=== PATIENT | female | born 1945 | race Caucasian/White ===

== ENCOUNTER 2018-10-06 21:04 | Emergency (ER) | payer MEDICARE, OTHER ==
[~2018-10-06] VITALS: Ht 167.6 cm; Wt 49.9 kg
--- NOTE | 2018-10-06 21:25 | ED General ---
General Chief Complaint: Fever-Adult/Adol Stated Complaint: FEVER,CONFUSED, WEAK Source of Information: Patient, Caregiver History of Present Illness Date Seen by Provider: Oct 06, 2018 Time Seen by Provider: 21:22 Initial Comments 73-year-old white female presents with a history of dysuria this morning with associated suprapubic discomfort. Patient now has a fever and has become confused. Patient had a similar presentation several months ago from a urinary tract infection. There is been no associated productive cough or shortness of breath. The patient denies nausea vomiting or diarrhea. Next Past medical history includes breast cancer. The patient is taking tamoxifen. Allergies and Home Medications Allergies Coded Allergies: No Known Drug Allergies (Unverified , 10/06/18) Patient Home Medication List Home Medication List Reviewed: Yes Review of Systems Review of Systems Constitutional: fever, weakness Respiratory: No cough, No short of breath Cardiovascular: No chest pain Gastrointestinal: No abdominal pain, No diarrhea, No nausea, No vomiting Genitourinary: see HPI, dysuria Musculoskeletal: no symptoms reported Skin: No rash Psychiatric/Neurological: Other (confusion with the present illness.) Hematologic/Lymphatic: No Symptoms Reported Immunological/Allergic: no symptoms reported Past Hrkeeli-Kfcmuf-Czgsep Hx Past Med/Social Hx: Reviewed Nursing Past Med/Soc Hx Patient Social History Recent Foreign Travel: No Contact w/Someone Who Travel: No Physical Exam-Suspected Sepsis Physical Exam Vital Signs Vital Signs - First Documented 10/06/18 21:07 Temp 101.3 Pulse 83 Resp 24 B/P (MAP) 171/79 (109) Pulse Ox 92 O2 Delivery Room Air Capillary Refill : Height, Weight, BMI Height: '" Weight: lbs. oz. kg; BMI Method: General Appearance: Cachetic, Other Eyes: Bilateral Eye Normal Inspection (the patient is poorly responsive but appropriate to simple verbal stimuli.) HEENT: Normal ENT Inspection Neck: Full Range of Motion, Normal Inspection, Non Tender Respiratory: Chest Non Tender, Lungs Clear Cardiovascular: Regular Rate, Rhythm Gastrointestinal: Normal Bowel Sounds, Non Tender, Soft Back: Normal Inspection Extremity: Normal Capillary Refill, Normal Inspection Neurologic/Psychiatric: Other (patient has no lateralizing localizing neurologic findings. She is weak. She is) Skin: normal color, warm/dry; No rash Focused Exam Lactate Level 10/06/18 21:33: Lactic Acid Level 1.20 Lactic Acid Level Laboratory Tests Test 10/06/18 21:33 Lactic Acid Level 1.20 MMOL/L (0.50-2.00) Progress/Results/Core Measures Suspected Sepsis SIRS Temperature: Pulse: Respiratory Rate: Laboratory Tests 10/06/18 21:33: White Blood Count 9.5 Blood Pressure / Mean: 10/06/18 21:33: Lactic Acid Level 1.20 Laboratory Tests 10/06/18 21:33: Creatinine 0.98, Platelet Count 129L, Total Bilirubin 0.5 Results/Orders Lab Results Laboratory Tests Test 10/06/18 21:33 10/06/18 22:38 Range/Units White Blood Count 9.5 4.3-11.0 10^3/uL Red Blood Count 4.29 L 4.35-5.85 10^6/uL Hemoglobin 13.9 11.5-16.0 G/DL Hematocrit 42 35-52 % Mean Corpuscular Volume 99 80-99 FL Mean Corpuscular Hemoglobin 32 25-34 PG Mean Corpuscular Hemoglobin Concent 33 32-36 G/DL Red Cell Distribution Width 13.2 10.0-14.5 % Platelet Count 129 L 130-400 10^3/uL Mean Platelet Volume 9.8 7.4-10.4 FL Neutrophils (%) (Auto) 84 H 42-75 % Lymphocytes (%) (Auto) 9 L 12-44 % Monocytes (%) (Auto) 6 0-12 % Eosinophils (%) (Auto) 0 0-10 % Basophils (%) (Auto) 0 0-10 % Neutrophils # (Auto) 8.0 H 1.8-7.8 X 10^3 Lymphocytes # (Auto) 0.8 L 1.0-4.0 X 10^3 Monocytes # (Auto) 0.6 0.0-1.0 X 10^3 Eosinophils # (Auto) 0.0 0.0-0.3 10^3/uL Basophils # (Auto) 0.0 0.0-0.1 10^3/uL Sodium Level 140 135-145 MMOL/L Potassium Level 4.2 3.6-5.0 MMOL/L Chloride Level 100 98-107 MMOL/L Carbon Dioxide Level 25 21-32 MMOL/L Anion Gap 15 H 5-14 MMOL/L Blood Urea Nitrogen 31 H 7-18 MG/DL Creatinine 0.98 0.60-1.30 MG/DL Estimat Glomerular Filtration Rate 55 BUN/Creatinine Ratio 32 Glucose Level 118 H 70-105 MG/DL Lactic Acid Level 1.20 0.50-2.00 MMOL/L Calcium Level 9.0 8.5-10.1 MG/DL Corrected Calcium 9.2 8.5-10.1 MG/DL Total Bilirubin 0.5 0.1-1.0 MG/DL Aspartate Amino Transf (AST/SGOT) 13 5-34 U/L Alanine Aminotransferase (ALT/SGPT) 8 0-55 U/L Alkaline Phosphatase 92 40-136 U/L Total Protein 6.8 6.4-8.2 GM/DL Albumin 3.7 3.2-4.5 GM/DL Urine Color YELLOW Urine Clarity SLT CLOUDY Urine pH 6.0 5-9 Urine Specific [place] 1.020 1.016-1.022 Urine Protein 1+ H NEGATIVE Urine Glucose (UA) NEGATIVE NEGATIVE Urine Ketones 1+ H NEGATIVE Urine Nitrite POSITIVE H NEGATIVE Urine Bilirubin NEGATIVE NEGATIVE Urine Urobilinogen 0.2 NORMAL MG/DL Urine Leukocyte Esterase 2+ H NEGATIVE Urine RBC (Auto) 2+ H NEGATIVE Urine RBC 2-5 H /HPF Urine WBC 10-25 H /HPF Urine Squamous Epithelial Cells 2-5 /HPF Urine Crystals NONE /LPF Urine Bacteria LARGE H /HPF Urine Casts NONE /LPF Urine Mucus NONE /LPF Urine Culture Indicated YES My Orders Orders - JYOTI TRIANA MD Cbc With Automated Diff (10/06/18 21:17) Ua Culture If Indicated (10/06/18 21:17) Comprehensive Metabolic Panel (10/06/18 21:17) Ekg Tracing (10/06/18 21:17) Blood Culture (10/06/18 21:17) Lactic Acid Analyzer (10/06/18 21:20) Ns Iv 1000 Ml (Sodium Chloride 0.9%) (10/06/18 21:30) Ceftriaxone For Iv Use (Rocephin For I (10/06/18 21:30) Chest Pa/Lat (2 View) (10/06/18 21:38) Acetaminophen Tablet/Caplet (Tylenol T (10/06/18 22:30) Urine Culture (10/06/18 22:38) Medications Given in ED Current Medications Medications Dose Ordered Sig/Uyen Route Start Time Stop Time Status Last Admin Dose Admin Acetaminophen 650 mg ONCE ONCE PO 10/06/18 22:30 10/06/18 22:31 DC 10/06/18 22:23 650 MG Ceftriaxone Sodium 2000 mg/ Sterile Water 20 ml @ 240 mls/hr ONCE ONCE IV 10/06/18 21:30 10/06/18 21:34 DC 10/06/18 22:23 240 MLS/HR Vital Signs/I&O 10/06/18 10/06/18 21:07 22:23 Temp 101.3 101.6 Pulse 83 Resp 24 B/P (MAP) 171/79 (109) Pulse Ox 92 O2 Delivery Room Air Capillary Refill : Progress Note : Time: 22:53 Progress Note The patient was dramatically improved following a liter of IV fluids and 2 g of Rocephin IV. Her workup demonstrated a urinary tract infection. The patient did not demonstrate a pneumonia. In the a.m. patient was discharged on Augmentin. She agreed to following up with her doctor early next week. She was invited to return to the emergency department if she any further problems or questions. Departure Impression Primary Impression: UTI (urinary tract infection) Qualified Codes: N30.00 - Acute cystitis without hematuria Disposition: HOME, SELF-CARE Condition: Improved Departure-Patient Inst. Decision time for Depature: 23:03 Referrals: NO,LOCAL PHYSICIAN (PCP) Primary Care Physician DIXIE DIETZ MD Patient Instructions: Acute Cystitis (DC) Add. Discharge Instructions: Augmentin as prescribed. Close follow-up with your doctor on Tuesday. Return if any problems or questions. All discharge instructions reviewed with patient and/or family. Voiced understanding. JYOTI TRIANA MD Oct 06, 2018 21:25
[2018-10-06] MEDS ORDERED: cefTRIAXone FOR IV USE 2,000 MG in WATER (STERILE) FOR INJECTION 20 ML IV ONE (21:30)
[2018-10-06] MEDS ORDERED: NS IV 1000 ML 1,000 ML IV SCH (21:30)
[2018-10-06 21:44] LABS: HEMATOCRIT 42 % (35-52); HEMOGLOBIN 13.9 G/DL (11.5-16.0); MEAN CORPUSCULAR HEMOGLOBIN 32 PG (25-34); MEAN CORPUSCULAR HGB CONC 33 G/DL (32-36); MEAN CORPUSCULAR VOLUME 99 FL (80-99); MEAN PLATELET VOLUME 9.8 FL (7.4-10.4); PLATELET COUNT 129 10^3/uL (130-400); RED CELL DISTRIBUTION WIDTH 13.2 % (10.0-14.5); WHITE BLOOD COUNT 9.5 10^3/uL (4.3-11.0)
[2018-10-06 21:45] LABS: BASOPHILS % (AUTO) 0 % (0-10); EOSINOPHILS % (AUTO) 0 % (0-10); LYMPHOCYTES # (AUTO) 0.8 X 10^3 (1.0-4.0); LYMPHOCYTES % (AUTO) 9 % (12-44); MONOCYTES # (AUTO) 0.6 X 10^3 (0.0-1.0); MONOCYTES % (AUTO) 6 % (0-12); NEUTROPHILS % (AUTO) 84 % (42-75)
--- NOTE | 2018-10-06 22:05 | Diagnostic Imaging Report ---
PATIENT HISTORY: Fever, confusion, shortness of breath. TECHNIQUE: 2 views of the chest COMPARISON: None FINDINGS: There is moderate cardiomegaly. There is tortuosity of the aorta. No pleural effusion or pneumothorax is seen. No focal consolidation is seen. There are degenerative changes in the spine. IMPRESSION: Cardiomegaly with no acute pulmonary abnormality seen. Dictated by: Dictated on workstation # [id number]
[2018-10-06 22:08] LABS: POTASSIUM 4.2 MMOL/L (3.6-5.0)
[2018-10-06 22:09] LABS: ALBUMIN 3.7 GM/DL (3.2-4.5); BILIRUBIN,TOTAL 0.5 MG/DL (0.1-1.0); CREATININE SERUM 0.98 MG/DL (0.60-1.30); TOTAL PROTEIN 6.8 GM/DL (6.4-8.2)
--- OUTSIDE RECORDS SUMMARY | 2018-10-06 22:09 | XMS REPORT | Continuity of Care Document ---
Author Organization Unknown Address Unknown Allergies There is no data. Medications There is no data. Problems There is no data. Procedures There is no data. Results Test Result Range CARBAMAZEPINE, TOTAL - 08/31/18 13:38 CARBAMAZEPINE, TOTAL 4.0 mg/L 4.0-12.0 CMP - 09/08/18 09:31 GLUCOSE 83 mg/dL 65-99 UREA NITROGEN (BUN) 22 mg/dL 7-25 CREATININE 0.82 mg/dL 0.60-0.93 eGFR NON-AFR. CITIZEN OF [place] 70 mL/min/1.73m2 > OR=60 eGFR 81 mL/min/1.73m2 > OR=60 BUN/CREATININE RATIO NOT APPLICABLE (calc) 6-22 SODIUM 143 mmol/L 135-146 POTASSIUM 4.2 mmol/L 3.5-5.3 CHLORIDE 108 mmol/L 98-110 CARBON DIOXIDE 28 mmol/L 20-32 CALCIUM 9.1 mg/dL 8.6-10.4 PROTEIN, TOTAL 6.3 g/dL 6.1-8.1 ALBUMIN 3.7 g/dL 3.6-5.1 GLOBULIN 2.6 g/dL (calc) 1.9-3.7 ALBUMIN/GLOBULIN RATIO 1.4 (calc) 1.0-2.5 BILIRUBIN, TOTAL 0.4 mg/dL 0.2-1.2 ALKALINE PHOSPHATASE 79 U/L 33-130 AST 12 U/L 10-35 ALT 6 U/L 6-29 CBC w/MANUAL DIFF - 09/08/18 09:31 WHITE BLOOD CELL COUNT 6.6 Thousand/uL 3.8-10.8 RED BLOOD CELL COUNT 4.76 Million/uL 3.80-5.10 HEMOGLOBIN 15.0 g/dL 11.7-15.5 HEMATOCRIT 46.7 % 35.0-45.0 MCV 98.1 fL 80.0-100.0 MCH 31.5 pg 27.0-33.0 MCHC 32.1 g/dL 32.0-36.0 RDW 12.6 % 11.0-15.0 PLATELET COUNT 165 Thousand/uL 140-400 MPV 9.5 fL 7.5-12.5 ABSOLUTE NEUTROPHILS 5016 cells/uL 9189-5738 ABSOLUTE MONOCYTES 462 cells/uL 200-950 ABSOLUTE EOSINOPHILS 132 cells/uL 15-500 ABSOLUTE BASOPHILS 66 cells/uL 0-200 NEUTROPHILS 76.0 % NRG LYMPHOCYTES 14.0 % NRG MONOCYTES 7.0 % NRG EOSINOPHILS 2.0 % NRG BASOPHILS 1.0 % NRG ABSOLUTE LYMPHOCYTES 924 cells/uL 850-3900 PLATELET ESTIMATION ADEQUATE ADEQUATE CBC MORPHOLOGY NORMAL Encounters ACCT No. Visit Date/Time Discharge Status Pt. Type Provider Facility Loc./Unit Complaint [id number] 09/08/2018 09:00:00 09/08/2018 23:59:59 [facility] Outpatient DIX[facility]ETZ [facility] [id number] 09/08/2018 09:00:00 Document Registration [id number] 08/31/2018 17:45:00 Document Registration
[2018-10-06] MEDS ORDERED: ACETAMINOPHEN 325 MG TABLET PO ONE (22:30)
[2018-10-06 22:48] LABS: COLOR,URINE YELLOW
[2018-10-06 22:49] LABS: BILIRUBIN,URINE NEGATIVE (NEGATIVE); CLARITY,URINE SLT CLOUDY; GLUCOSE, URINE (UA) NEGATIVE (NEGATIVE); KETONES,URINE 1+ (NEGATIVE); LEUKOCYTE ESTERASE ,URINE 2+ (NEGATIVE); NITRITE,URINE POSITIVE (NEGATIVE); PROTEIN,URINE 1+ (NEGATIVE); UROBILINOGEN,URINE 0.2 MG/DL (NORMAL)
[2018-10-06 22:50] LABS: BACTERIA,URINE LARGE /HPF
[2018-10-06] MEDS ORDERED: AMOX-358 PO (23:06)
[2018-10-06 23:17] VITALS: BP 135/80
== END 2018-10-06 23:17 | disposition home or self-care (01) ==
LOC: ER FS 21:06
DX: N39.0 Urinary tract infection, site not specified (principal); C50.919 Malignant neoplasm of unspecified site of unspecified female breast
CPT/HCPCS: 36415; 71046; 80053; 81000; 83605; 85025; 87040; 87077; 87088; 93005

== ENCOUNTER → 2019-05-07 | Outpatient (CLI) | payer MEDICARE ==
[~2019-05-07] MED LIST: AMOX-358 PO
--- NOTE | 2019-05-07 10:58 | Diagnostic Imaging Report ---
INDICATION: Jaw pain. COMPARISON: None available. TECHNIQUE: 6 radiographs of the mandible dated 05/07/2019. FINDINGS: Examination slightly limited secondary to positioning, earrings, and dental amalgam. No acute fracture or dislocation. No destructive osseous process. Nasal septum is midline. No apical pneumothorax. No suspicious radiopaque foreign body. Degenerative changes within the cervical spine partially visualized. No suspicious radiopaque foreign body. IMPRESSION: No acute osseous abnormality within the limits of the examination Dictated by: Dictated on workstation # [id number]
== END ==
LOC: RAD FS 10:19
PROVIDERS: ATTEND Family Medicine
DX: R68.84 Jaw pain (principal)
CPT/HCPCS: 70110

== ENCOUNTER 2020-01-02 09:20 | Inpatient (IN) | payer MEDICARE ==
[~2020-01-02] VITALS: Ht 152.4 cm; Wt 55.2 kg
[2020-01-02] VITALS (12 sets, daily range): BP systolic 95–155; BP diastolic 58–105
[2020-01-02] MEDS ORDERED: ASPIRIN 81 MG CHEW (CHILDREN'S ASA) PO ONE (09:30)
[2020-01-02] MEDS ORDERED: NS IV 1000 ML 1,000 ML IV STA ×2 (09:43→11:13)
[2020-01-02 09:59] LABS: BASOPHILS % (AUTO) 0 % (0-10); EOSINOPHILS % (AUTO) 0 % (0-10); HEMATOCRIT 36 % (35-52); HEMOGLOBIN 11.8 G/DL (11.5-16.0); LYMPHOCYTES % (AUTO) 12 % (12-44); MEAN CORPUSCULAR HEMOGLOBIN 33 PG (25-34); MEAN CORPUSCULAR HGB CONC 33 G/DL (32-36); MEAN CORPUSCULAR VOLUME 99 FL (80-99); MEAN PLATELET VOLUME 10.7 FL (7.4-10.4); MONOCYTES % (AUTO) 4 % (0-12); PLATELET COUNT 107 10^3/uL (130-400); WHITE BLOOD COUNT 18.6 10^3/uL (4.3-11.0)
[2020-01-02 10:00] LABS: BASOPHILS # (AUTO) 0.1 10^3/uL (0.0-0.1); LYMPHOCYTES # (AUTO) 2.3 X 10^3 (1.0-4.0); MONOCYTES # (AUTO) 0.8 X 10^3 (0.0-1.0); NEUTROPHILS # (AUTO) 15.3 X 10^3 (1.8-7.8); NEUTROPHILS % (AUTO) 83 % (42-75)
[2020-01-02 10:07] LABS: INR 1.3 (0.8-1.4); PROTHROMBIN TIME PATIENT 16.6 SEC (12.2-14.7)
--- NOTE | 2020-01-02 10:11 | ED General ---
General Chief Complaint: Oral/Throat Problems Stated Complaint: BLEEDING GUMS Source of Information: Patient, EMS History of Present Illness Date Seen by Provider: Jan 02, 2020 Time Seen by Provider: 09:24 Initial Comments 74-year-old female presenting with complaints of bleeding from where she had a tooth pulled yesterday. She had some continued bleeding overnight. She also has been smoking since she had the tooth pulled. She had low blood pressure this morning and was more fatigued and sleepy than usual. She is alert and answering questions but had hypotension. She denies any pain, nausea or vomiting, chest pain, shortness of breath, cough. Her only complaint is that she is tired and wants to sleep. Allergies and Home Medications Allergies Coded Allergies: No Known Drug Allergies (Unverified , 10/06/18) Home Medications Acetaminophen 325 Mg Capsule, 650 MG PO Q4H PRN for PAIN-MILD (1-4) OR TEMPATURE , (Reported) Aspirin 81 Mg Tablet.dr, 81 MG PO DAILY, (Reported) Carbamazepine 100 Mg Tab.chew, 100 MG PO 0800,1200,1700, (Reported) TAKES THREE TIMES DAILY Ibuprofen 400 Mg Tablet, 400 MG PO Q8H PRN for PAIN-MILD (1-4), (Reported) Ketorolac Tromethamine 5 Ml Drops, 1 DROPS OD QID, (Reported) Krill Oil 500 Mg Capsule, 500 MG PO DAILY, (Reported) Magnesium Oxide 250 Mg Tablet, 250 MG PO DAILY, (Reported) Mirtazapine 15 Mg Tablet, 15 MG PO HS, (Reported) Multivitamin 1 Each Tablet, 1 EACH PO DAILY, (Reported) Polyethylene Glycol 3350 17 Gm Powd.pack, 17 GM PO DAILY PRN for CONSTIPATION- 2ND LINE, (Reported) Tamoxifen Citrate 20 Mg Tablet, 20 MG PO DAILY, (Reported) [Magic Mouthwash] , Q6H PRN for MOUTH PAIN, (Reported) TAKE 1 SIP THEN SWISH, HOLD AND SPITOUT Patient Home Medication List Home Medication List Reviewed: Yes Review of Systems Review of Systems Constitutional: malaise, weakness EENTM: no symptoms reported Respiratory: No cough Cardiovascular: no symptoms reported Gastrointestinal: other (dark stools per detention) Genitourinary: no symptoms reported Musculoskeletal: no symptoms reported Skin: no symptoms reported Psychiatric/Neurological: No Symptoms Reported Past Qzohxyc-Nymxqf-Hqbtpq Hx Past Med/Social Hx: Reviewed Nursing Past Med/Soc Hx Patient Social History Type Used: Cigarettes 2nd Hand Smoke Exposure: Yes Recent Hopitalizations: No Past Medical History Surgeries: No Respiratory: No Cardiac: Yes Hypertension Neurological: Yes Dementia Genitourinary: Yes UTI-Chronic Gastrointestinal: Yes Gastroesophageal Reflux Musculoskeletal: No Endocrine: No HEENT: No Cancer: Yes Breast Did You Recieve Any Treatments: Yes Psychosocial: No Integumentary: No Physical Exam Vital Signs Vital Signs - First Documented 01/02/20 01/02/20 09:20 09:30 Temp 35.6 Pulse 84 Resp 16 B/P (MAP) 79/56 (64) Pulse Ox 96 O2 Delivery Room Air O2 Flow Rate 2.00 Capillary Refill : Height, Weight, BMI Height: 5'6.00" Weight: 110lbs. 0oz. [id number]; BMI Method:Stated General Appearance: No Apparent Distress, Thin HEENT: PERRL/EOMI, Other (clot to left lower anterior gum where tooth recently pulled. no active bleeding) Neck: Non Tender, Supple Respiratory: Chest Non Tender, Lungs Clear, Decreased Breath Sounds Cardiovascular: Regular Rate, Rhythm, Normal Peripheral Pulses Extremity: Normal Capillary Refill, No Pedal Edema Neurologic/Psychiatric: Alert, Oriented x3 Skin: Warm/Dry, Pallor Focused Exam Sepsis Stage: Sepsis Possible Source: Genitouriary Lactate Level 01/02/20 10:31: Lactic Acid Level 4.95*H 01/02/20 13:44: Lactic Acid Level 3.86*H Time of Focused Exam: 11:30 Respiratory: Chest Non Tender, Lungs Clear, No Accessory Muscle Use, No Respiratory Distress, Decreased Breath Sounds Cardiovascular: Regular Rate, Rhythm, Normal Peripheral Pulses Capillary Refill: Less Than 3 Seconds Peripheral Pulses: 2+ Carotid (R), 2+ Carotid (L), 2+ Radial Pulses (R), 2+ Radial Pulses (L) Skin: normal color, warm/dry Lactic Acid Level Laboratory Tests Test 01/02/20 13:44 Lactic Acid Level 3.86 MMOL/L (0.50-2.00) *H Within 3hrs of presentation: Admin fluids, Admin ABX, Blood cultures prior to ABX's, Focus exam, Lactate level Progress/Results/Core Measures Suspected Sepsis Recent Fever Within 48 Hours: Yes Infection Criteria Present: Suspected New Infection New/Unexplained Altered Menta: No Within 3hrs of presentation: Admin fluids, Admin ABX, Blood cultures prior to ABX's, Focus exam, Lactate level SIRS Temperature: Pulse: Respiratory Rate: Laboratory Tests 01/02/20 09:42: White Blood Count 18.6H Blood Pressure / Mean: 01/02/20 10:31: Lactic Acid Level 4.95*H 01/02/20 13:44: Lactic Acid Level 3.86*H Laboratory Tests 01/02/20 09:42: Creatinine 1.80H, INR Comment 1.3, Platelet Count 107L, Total Bilirubin 0.2 Results/Orders Lab Results Laboratory Tests Test 01/02/20 09:42 01/02/20 10:31 01/02/20 10:45 01/02/20 13:44 Range/Units White Blood Count 18.6 H 4.3-11.0 10^3/uL Red Blood Count 3.63 L 4.35-5.85 10^6/uL Hemoglobin 11.8 11.5-16.0 G/DL Hematocrit 36 35-52 % Mean Corpuscular Volume 99 80-99 FL Mean Corpuscular Hemoglobin 33 25-34 PG Mean Corpuscular Hemoglobin Concent 33 32-36 G/DL Red Cell Distribution Width 13.0 10.0-14.5 % Platelet Count 107 L 130-400 10^3/uL Mean Platelet Volume 10.7 H 7.4-10.4 FL Neutrophils (%) (Auto) 83 H 42-75 % Lymphocytes (%) (Auto) 12 12-44 % Monocytes (%) (Auto) 4 0-12 % Eosinophils (%) (Auto) 0 0-10 % Basophils (%) (Auto) 0 0-10 % Neutrophils # (Auto) 15.3 H 1.8-7.8 X 10^3 Lymphocytes # (Auto) 2.3 1.0-4.0 X 10^3 Monocytes # (Auto) 0.8 0.0-1.0 X 10^3 Eosinophils # (Auto) 0.0 0.0-0.3 10^3/uL Basophils # (Auto) 0.1 0.0-0.1 10^3/uL Neutrophils % (Manual) 84 % Lymphocytes % (Manual) 12 % Monocytes % (Manual) 1 % Eosinophils % (Manual) 0 % Basophils % (Manual) 0 % Band Neutrophils 3 % Prothrombin Time 16.6 H 12.2-14.7 SEC INR Comment 1.3 0.8-1.4 Activated Partial Thromboplast Time 27 24-35 SEC Sodium Level 143 135-145 MMOL/L Potassium Level 4.2 3.6-5.0 MMOL/L Chloride Level 102 98-107 MMOL/L Carbon Dioxide Level 21 21-32 MMOL/L Anion Gap 20 H 5-14 MMOL/L Blood Urea Nitrogen 89 H 7-18 MG/DL Creatinine 1.80 H 0.60-1.30 MG/DL Estimat Glomerular Filtration Rate 27 BUN/Creatinine Ratio 49 Glucose Level 181 H 70-105 MG/DL Calcium Level 9.1 8.5-10.1 MG/DL Corrected Calcium 9.5 8.5-10.1 MG/DL Total Bilirubin 0.2 0.1-1.0 MG/DL Aspartate Amino Transf (AST/SGOT) 19 5-34 U/L Alanine Aminotransferase (ALT/SGPT) 13 0-55 U/L Alkaline Phosphatase 76 40-136 U/L Troponin I < 0.30 <0.30 NG/ML Pro-B-Type Natriuretic Peptide 1142.0 H <75.0 PG/ML Total Protein 5.9 L 6.4-8.2 GM/DL Albumin 3.5 3.2-4.5 GM/DL Lactic Acid Level 4.95 *H 3.86 *H 0.50-2.00 MMOL/L Urine Color YELLOW Urine Clarity TURBID Urine pH 6.0 5-9 Urine Specific [place] >=1.030 1.016-1.022 Urine Protein 2+ H NEGATIVE Urine Glucose (UA) NEGATIVE NEGATIVE Urine Ketones NEGATIVE NEGATIVE Urine Nitrite NEGATIVE NEGATIVE Urine Bilirubin 1+ H NEGATIVE Urine Urobilinogen 0.2 < = 1.0 MG/DL Urine Leukocyte Esterase 2+ H NEGATIVE Urine RBC (Auto) 3+ H NEGATIVE Urine RBC 5-10 H /HPF Urine WBC TNTC H /HPF Urine Squamous Epithelial Cells 10-25 H /HPF Urine Crystals NONE /LPF Urine Bacteria LARGE H /HPF Urine Casts NONE /LPF Urine Mucus NEGATIVE /LPF Urine Culture Indicated YES Test 01/02/20 14:20 Range/Units Stool Occult Blood Immunoassay POSITIVE H NEGATIVE My Orders Orders - MEGAN MCDONALD MD Cbc With Automated Diff (01/02/20 09:29) Ekg Tracing (01/02/20 09:29) Comprehensive Metabolic Panel (01/02/20 09:29) Protime With Inr (01/02/20 09:29) Partial Thromboplastin Time (01/02/20 09:29) O2 (01/02/20 09:29) Monitor-Rhythm Ecg Trace Only (01/02/20 09:29) Ed Iv/Invasive Line Start (01/02/20 09:29) Troponin I Fs (01/02/20 09:29) Probnp Fs (01/02/20 09:29) Ns Iv 1000 Ml (Sodium Chloride 0.9%) (01/02/20 09:43) Manual Differential (01/02/20 09:42) Blood Culture (01/02/20 10:12) Lactic Acid Analyzer (01/02/20 10:12) Chest 1 View Ap/Pa Only (01/02/20 10:25) Miller Cath (01/02/20 10:41) Ua Culture If Indicated (01/02/20 10:54) Ns Iv 1000 Ml (Sodium Chloride 0.9%) (01/02/20 11:13) Urine Culture (01/02/20 10:45) Ceftriaxone For Iv Use (Rocephin For I (01/02/20 11:36) Vital Signs/I&O 01/02/20 01/02/20 01/02/20 01/02/20:20 09:30 13:30 14:34 Temp 35.6 37.7 Pulse 84 Resp 16 B/P (MAP) 79/56 (64) Pulse Ox 96 79 O2 Delivery Room Air Nasal Cannula Nasal Cannula O2 Flow Rate 2.00 3.00 01/02/20 01/02/20 01/02/20 14:50 15:34 15:35 Pulse 84 76 B/P (MAP) 79/56 111/95 O2 Delivery Nasal Cannula O2 Flow Rate 2.00 Capillary Refill : Progress Note #1: Progress Note check labs and blood count. give IVF for her low blood pressure to see if that helps. Progress Note #2: Time: 10:27 Progress Note CBC shows elevated WBC count to 18.4 with left shift. Her Hgb is stable at 11.8. She does have some hypoxia with oxygen dropping down into the mid 80s so placed on supplemental oxygen. She does smoke but denies using oxygen routinely. Will add on CXR and blood cultures with lactic acid to look for infection since she is not anemic to be causing her hypotension. Progress Note #3: Time: 11:48 Progress Note Chest x-ray was clear did not show any infiltrates or pneumonia. Her lactic acid did come back elevated at 4.95. A urinalysis was undergone by catheter and didn't demonstrate infection. Since I had a specific source she was given Rocephin to treat a UTI. Her blood pressure and heart rate improved with IV fluids. Her oxygen was stable with nasal cannula. Discussed with Dr. Nielson for the [facility] service and she accepted the patient for admission. Will admit to the ICU since patient is septic with a UTI. ECG Initial ECG Impression Date: Jan 02, 2020 Initial ECG Impression Time: 11:32 Initial ECG Rate: 62 Initial ECG Comparisson: No Previous ECG Available Comment Sinus rhythm with heart rate of 62 bpm. Short VA interval with her interval of 72 ms. Left axis deviation. Prolonged QT interval 535 ms and a QTc interval of 5 44 ms. There is global T-wave flattening but no ST elevation. There is no prior tracing immediately available for comparison. Diagnostic Imaging Diagonstic Imaging: Xray Plain Films/CT/US/NM/MRI: chest Comments [facility]. [place], [place] NAME: MIRELA BELTRAN [facility] REC#: [id number] PT STATUS: REG ER : 1945 PHYSICIAN: MEGAN MCDONALD MD ADMIT DATE: 01/02/20/ER FS Draft Date of Exam:01/02/20 CHEST 1 VIEW AP/PA ONLY INDICATION: Hypoxia. Time of exam: 10:26 AM Comparison is made with prior chest from 10/06/2018. The heart size is stable. There is some minimal linear scarring or atelectasis in the right base. No infiltrates are detected. There is no effusion or pneumothorax. Pulmonary vascularity is unremarkable. IMPRESSION: No acute cardiopulmonary process is detected. Dictated on workstation # [id number] Dict: 01/02/20 1042 Trans: 01/02/20 1044 ARMANI [id number] Interpreted by: LADONNA MOSHER MD Electronically signed by: Critical Care Note Critical Care Total Time (minutes) 45 minutes Progress 45 minutes of time was spent in critical care of the patient. This time was spent in direct care of the patient. Time was spent obtaining history from the patient and reviewing records, ordering labs and reviewing results, ordering radiology and reviewing results, ordering interventions and monitoring response, discussion with consultants, documentation in the chart. Patient was at risk of severe mortality and morbidity from cardiovascular collapse due to infection from sepsis. Departure Communication (Admissions) Time/Spoke to Admitting Phy: 11:[address] Nielson for admission to the ICU for sepsis and UTI. Impression Primary Impression: Sepsis Qualified Codes: A41.9 - Sepsis, unspecified organism; R65.21 - Severe sepsis with septic shock; N17.9 - Acute kidney failure, unspecified Additional Impressions: Acute cystitis without hematuria Acute renal injury Dehydration Disposition: ADMITTED INPATIENT Condition: Critical Admissions Decision to Admit Reason: Admit from ER (General) Decision to Admit/Date: Jan 02, 2020 Time/Decision to Admit Time: 11:48 Departure-Patient Inst. Referrals: DIXIE DIETZ MD (PCP/Family) Primary Care Physician MEGAN MCDONALD MD Jan 02, 2020 10:11
[2020-01-02 10:16] LABS: BAND NEUTROPHILS 3 %; BASOPHILS % (MANUAL) 0 %; EOSINOPHILS % (MANUAL) 0 %; LYMPHOCYTES % (MANUAL) 12 %; MONOCYTES % (MANUAL) 1 %; NEUTROPHILS % (MANUAL) 84 %
[2020-01-02 10:27] LABS: CALCIUM 9.1 MG/DL (8.5-10.1); CREATININE SERUM 1.8 MG/DL (0.60-1.30); POTASSIUM 4.2 MMOL/L (3.6-5.0)
[2020-01-02 10:28] LABS: ALBUMIN 3.5 GM/DL (3.2-4.5); BILIRUBIN,TOTAL 0.2 MG/DL (0.1-1.0); TOTAL PROTEIN 5.9 GM/DL (6.4-8.2)
--- NOTE | 2020-01-02 10:44 | Diagnostic Imaging Report ---
INDICATION: Hypoxia. Time of exam: 10:26 AM Comparison is made with prior chest from 10/06/2018. The heart size is stable. There is some minimal linear scarring or atelectasis in the right base. No infiltrates are detected. There is no effusion or pneumothorax. Pulmonary vascularity is unremarkable. IMPRESSION: No acute cardiopulmonary process is detected. Dictated by: Dictated on workstation # [id number]
[2020-01-02 11:11] LABS: CLARITY,URINE TURBID; COLOR,URINE YELLOW; GLUCOSE, URINE (UA) NEGATIVE (NEGATIVE); PROTEIN,URINE 2+ (NEGATIVE)
[2020-01-02 11:12] LABS: BACTERIA,URINE LARGE /HPF; BILIRUBIN,URINE 1+ (NEGATIVE); KETONES,URINE NEGATIVE (NEGATIVE); LEUKOCYTE ESTERASE ,URINE 2+ (NEGATIVE); NITRITE,URINE NEGATIVE (NEGATIVE); WBC,URINE TNTC /HPF
[2020-01-02] MEDS ORDERED: cefTRIAXone FOR IV USE 1,000 MG in WATER (STERILE) FOR INJECTION 10 ML IV STA (11:36)
[2020-01-02] MEDS ORDERED: NS IV 1000 ML 1,000 ML IV SCH ×2 (13:30→17:57)
[2020-01-02] MEDS: cefTRIAXone FOR IV USE 1,000 MG in WATER (STERILE) FOR INJECTION 10 ML IV SCH (14:05)
[2020-01-02] MEDS ORDERED: EPINEPHrine 1 MG INJECTION 4 MG in NS (IVPB) 248 ML IV SCH (14:30)
[2020-01-02] MEDS ORDERED: ACETAMINOPHEN 500 MG TAB (TYLENOL) PO PRN (14:45)
[2020-01-02] MEDS ORDERED: ONDANSETRON 4 MG/2 ML (SDV) Z0FRAN IVP PRN (14:45)
[2020-01-02] MEDS ORDERED: ASPI-1238 PO (15:04)
[2020-01-02] MEDS ORDERED: KETO5DRO14 OD (15:04)
[2020-01-02] MEDS ORDERED: MIRT15TA PO (15:04)
[2020-01-02] MEDS ORDERED: KRIL500C PO (15:04)
[2020-01-02] MEDS ORDERED: MAGIC MOUTHWASH (15:04)
[2020-01-02] MEDS ORDERED: MULT-1136 PO (15:04)
[2020-01-02] MEDS ORDERED: TAMO20TA2 PO (15:04)
[2020-01-02] MEDS ORDERED: MAGN250T13 PO (15:04)
[2020-01-02] MEDS ORDERED: ACET325C7 PO (15:04)
[2020-01-02] MEDS ORDERED: IBUP-1779 PO (15:04)
[2020-01-02] MEDS ORDERED: POLY17PO6 PO (15:04)
[2020-01-02] MEDS ORDERED: CARB100T6 PO (15:04)
--- NOTE | 2020-01-02 15:05 | NUR ---
MED REC WAS ENTERED USING THE MAR FROM [facility]
[2020-01-02] MEDS: NOREPINEPHRINE 4 MG/250 ML 250 ML IV SCH (15:34)
[2020-01-02] MEDS: VASOPRESSIN INJECTION 20 UNIT in NS (IVPB) 100 ML IV SCH ×2 (15:35→20:56)
--- NOTE | 2020-01-02 15:54 | History & Physical ---
HPI History of Present Illness: 74 yo female states she came to ER due to her teeth. She had dental extraction and then smoked shortly after and had bleeding and she believes that is what led to this. She denies fever or cough. She does seem mildly confused, changes the subject frequently and can't remember the name of the person coming to visit her . When asked about surgical history she removes her blanket and clothing and points to scars. Source: patient Date seen by provider: Jan 02, 2020 Time Seen by Provider: 12:45 Attending Physician Fernanda Nielson MD PCP Kunal Odom MD Consult Date of Admission Jan 02, 2020 at 13:28 Home Medications Home Medications Reviewed patient Home Medication Reconciliation performed by pharmacy medication reconciliations service center technician and/or nursing. Patients Allergies have been reviewed. Allergies Coded Allergies: No Known Drug Allergies (Unverified , 10/06/18) DZF-Vskzkm-Sphbal Hx Patient Social History Alcohol Use: Denies Use Recreational Drug Use: No Smoking Status: Current Everyday Smoker Type Used: Cigarettes 2nd Hand Smoke Exposure: Yes Recent Foreign Travel: No Contact w/other who traveled: No Recent Hopitalizations: No Recent Infectious Disease Expo: No Past Medical History PMHx: Pt unable to state SurgHx: C section Right mastectomy Review of Systems ([facility]) Constitutional: other (difficult to obtain, patient easily distracted and not answering all questions) Reviewed Test Results Reviewed Test Results Lab Laboratory Tests Test 01/02/20 09:42 01/02/20 10:31 01/02/20 10:45 01/02/20 13:44 Range/Units White Blood Count 18.6 H 4.3-11.0 10^3/uL Red Blood Count 3.63 L 4.35-5.85 10^6/uL Hemoglobin 11.8 11.5-16.0 G/DL Hematocrit 36 35-52 % Mean Corpuscular Volume 99 80-99 FL Mean Corpuscular Hemoglobin 33 25-34 PG Mean Corpuscular Hemoglobin Concent 33 32-36 G/DL Red Cell Distribution Width 13.0 10.0-14.5 % Platelet Count 107 L 130-400 10^3/uL Mean Platelet Volume 10.7 H 7.4-10.4 FL Neutrophils (%) (Auto) 83 H 42-75 % Lymphocytes (%) (Auto) 12 12-44 % Monocytes (%) (Auto) 4 0-12 % Eosinophils (%) (Auto) 0 0-10 % Basophils (%) (Auto) 0 0-10 % Neutrophils # (Auto) 15.3 H 1.8-7.8 X 10^3 Lymphocytes # (Auto) 2.3 1.0-4.0 X 10^3 Monocytes # (Auto) 0.8 0.0-1.0 X 10^3 Eosinophils # (Auto) 0.0 0.0-0.3 10^3/uL Basophils # (Auto) 0.1 0.0-0.1 10^3/uL Neutrophils % (Manual) 84 % Lymphocytes % (Manual) 12 % Monocytes % (Manual) 1 % Eosinophils % (Manual) 0 % Basophils % (Manual) 0 % Band Neutrophils 3 % Prothrombin Time 16.6 H 12.2-14.7 SEC INR Comment 1.3 0.8-1.4 Activated Partial Thromboplast Time 27 24-35 SEC Sodium Level 143 135-145 MMOL/L Potassium Level 4.2 3.6-5.0 MMOL/L Chloride Level 102 98-107 MMOL/L Carbon Dioxide Level 21 21-32 MMOL/L Anion Gap 20 H 5-14 MMOL/L Blood Urea Nitrogen 89 H 7-18 MG/DL Creatinine 1.80 H 0.60-1.30 MG/DL Estimat Glomerular Filtration Rate 27 BUN/Creatinine Ratio 49 Glucose Level 181 H 70-105 MG/DL Calcium Level 9.1 8.5-10.1 MG/DL Corrected Calcium 9.5 8.5-10.1 MG/DL Total Bilirubin 0.2 0.1-1.0 MG/DL Aspartate Amino Transf (AST/SGOT) 19 5-34 U/L Alanine Aminotransferase (ALT/SGPT) 13 0-55 U/L Alkaline Phosphatase 76 40-136 U/L Troponin I < 0.30 <0.30 NG/ML Pro-B-Type Natriuretic Peptide 1142.0 H <75.0 PG/ML Total Protein 5.9 L 6.4-8.2 GM/DL Albumin 3.5 3.2-4.5 GM/DL Lactic Acid Level 4.95 *H 3.86 *H 0.50-2.00 MMOL/L Urine Color YELLOW Urine Clarity TURBID Urine pH 6.0 5-9 Urine Specific [place] >=1.030 1.016-1.022 Urine Protein 2+ H NEGATIVE Urine Glucose (UA) NEGATIVE NEGATIVE Urine Ketones NEGATIVE NEGATIVE Urine Nitrite NEGATIVE NEGATIVE Urine Bilirubin 1+ H NEGATIVE Urine Urobilinogen 0.2 < = 1.0 MG/DL Urine Leukocyte Esterase 2+ H NEGATIVE Urine RBC (Auto) 3+ H NEGATIVE Urine RBC 5-10 H /HPF Urine WBC TNTC H /HPF Urine Squamous Epithelial Cells 10-25 H /HPF Urine Crystals NONE /LPF Urine Bacteria LARGE H /HPF Urine Casts NONE /LPF Urine Mucus NEGATIVE /LPF Urine Culture Indicated YES Test 01/02/20 14:20 Range/Units Stool Occult Blood Immunoassay POSITIVE H NEGATIVE Radiology CXR 01/01 unremarkable Physical Exam-([facility]) Physical Exam Vital Signs VS - Last 72 Hours, by Label 01/02/20 01/02/20 01/02/20 01/02/20 09:20 09:30 13:30 14:34 Temp 35.6 37.7 Pulse 84 Resp 16 B/P (MAP) 79/56 (64) Pulse Ox 96 79 O2 Delivery Room Air Nasal Cannula Nasal Cannula O2 Flow Rate 2.00 3.00 01/02/20 01/02/20 01/02/20 14:50 15:34 15:35 Pulse 84 76 B/P (MAP) 79/56 111/95 O2 Delivery Nasal Cannula O2 Flow Rate 2.00 Capillary Refill : Less Than 3 Seconds General Appearance: no apparent distress HEENT: PERRL/EOMI, other (poor dentition, area of extraction on lower left with no active bleeding) Respiratory: lungs clear, normal breath sounds Cardiovascular: regular rate, rhythm, no murmur Gastrointestinal: normal bowel sounds, non tender, soft Extremities: no pedal edema Neurologic/Psychiatric: director of enterprise strategy II-XII nml as tested (unable to hear finger rub, otherwise normal), alert; No motor weakness; other (oriented to self, location and year) Skin: ecchymosis (cheek) Assessment/Plan Assessment/Plan Admission Status: Inpatient Order (span 2 midnights) Reason for Inpatient Admission: Severe sepsis (1) Severe sepsis Status: Acute Assessment & Plan: Secondary to urinary tract infection. Initially with low BP which is improved after fluid resuscitation as well as lactic acid above 4. Norepinephrine ordered if needed. Continue NS @ 150 with caution given elevated BNP. Repeat lactic acid. (2) Acute cystitis without hematuria Status: Acute Assessment & Plan: Ceftriaxone (3) Acute renal injury Status: Acute Assessment & Plan: Suspect secondary to sepsis, IVF and monitor. (4) Hypoxia Status: Acute Assessment & Plan: Possibly end organ due to sepsis versus fluid overload, however fluids continue to be needed for her hypotension and respiratory status is stable on 4 lpm able to wean to 3 lpm while doing exam. Monitor closely, will likely need lasix after fluid resuscitation. Clinic chart indicates history of COPD but is not on any inhalers, unclear diagnosis. (5) Elevated brain natriuretic peptide (BNP) level Status: Acute Assessment & Plan: No known history of CHF, check echo and monitor respiratory status closely. (6) History of breast cancer Status: Chronic Assessment & Plan: On tamoxifen, has had right mastectomy. (7) Thrombocytopenia Status: Acute Assessment & Plan: Possibly infection related, monitor. (8) DVT prophylaxis Status: Acute Assessment & Plan: Enoxaparin FERNANDA NIELSON MD Jan 02, 2020 15:54
[2020-01-02] MEDS ORDERED: KETOROLAC TROMETHAMINE OD SCH (17:00)
[2020-01-02] MEDS ORDERED: ENOXAPARIN 30 MG/0.3 ML (LOVENOX) SYR SC SCH (17:00)
[2020-01-02] MEDS: carBAMazepine 100 MG (TEGretol) CHEW PO SCH (17:24)
[2020-01-02] MEDS: LACTATED RINGERS 1,000 ML IV SCH ×2 (17:25→20:56)
[2020-01-02] MEDS: MIRTAZAPINE 15 MG (REMERON) TAB PO SCH (20:56)
[2020-01-03] VITALS (21 sets, daily range): BP systolic 97–144; BP diastolic 60–104
[2020-01-03] MEDS: NOREPINEPHRINE 4 MG/250 ML 250 ML IV SCH ×2 (02:58→15:23)
[2020-01-03] MEDS: LACTATED RINGERS 1,000 ML IV SCH ×3 (03:56→18:58)
[2020-01-03 04:02] LABS: BASOPHILS % (AUTO) 0 % (0-10); EOSINOPHILS # (AUTO) 0.2 10^3/uL (0.0-0.3); EOSINOPHILS % (AUTO) 2 % (0-10); HEMATOCRIT 26 % (35-52); HEMOGLOBIN 8.6 G/DL (11.5-16.0); LYMPHOCYTES # (AUTO) 2.4 X 10^3 (1.0-4.0); LYMPHOCYTES % (AUTO) 25 % (12-44); MEAN CORPUSCULAR HEMOGLOBIN 32 PG (25-34); MEAN CORPUSCULAR HGB CONC 33 G/DL (32-36); MEAN CORPUSCULAR VOLUME 98 FL (80-99); MEAN PLATELET VOLUME 10.5 FL (7.4-10.4); MONOCYTES # (AUTO) 0.5 X 10^3 (0.0-1.0); MONOCYTES % (AUTO) 5 % (0-12); NEUTROPHILS # (AUTO) 6.6 X 10^3 (1.8-7.8); NEUTROPHILS % (AUTO) 68 % (42-75); PLATELET COUNT 89 10^3/uL (130-400); WHITE BLOOD COUNT 9.7 10^3/uL (4.3-11.0)
[2020-01-03 04:19] LABS: CALCIUM 7.5 MG/DL (8.5-10.1); MAGNESIUM 1.6 MG/DL (1.6-2.4); PHOSPHORUS 2.7 MG/DL (2.3-4.7); POTASSIUM 3.2 MMOL/L (3.6-5.0)
[2020-01-03] MEDS ORDERED: POTASSIUM CL 10MEQ/50ML IVPB 200 ML IV ONE (04:29)
[2020-01-03] MEDS ORDERED: MAGNESIUM 1 GM/100 ML IVPB 200 ML IV ONE (04:29)
[2020-01-03] MEDS: MAGNESIUM 1 GM/100 ML IVPB 100 ML IV SCH ×2 (04:41→05:30)
[2020-01-03] MEDS: POTASSIUM CL 10MEQ/50ML IVPB 50 ML IV SCH ×4 (04:41→08:57)
[2020-01-03] MEDS: VASOPRESSIN INJECTION 20 UNIT in NS (IVPB) 100 ML IV SCH ×2 (06:34→15:22)
--- NOTE | 2020-01-03 07:25 | Diagnostic Imaging Report ---
INDICATION: Sepsis COMPARISON: 01/02/2020 FINDINGS: Single view chest demonstrates stable cardiac enlargement. The lungs are clear. There is no pneumothorax. Effusion or focal infiltrate. Osseous structures normal. IMPRESSION: No acute cardiopulmonary findings. Dictated by: Dictated on workstation # [id number]
[2020-01-03] MEDS: ASPIRIN E.C. 81 MG (ECOTRIN) TAB PO SCH (08:58)
[2020-01-03] MEDS: carBAMazepine 100 MG (TEGretol) CHEW PO SCH ×3 (08:58→17:20)
[2020-01-03] MEDS ORDERED: TAMOXIFEN CITRATE 10 MG TABLET PO SCH (09:00)
[2020-01-03] MEDS ORDERED: cefTRIAXone FOR IV USE 1,000 MG in WATER (STERILE) FOR INJECTION 10 ML IV SCH (09:45)
--- NOTE | 2020-01-03 11:54 | Progress Note ---
LEE GARDINER,MED STUDENT 01/03/20 1154: Subjective Subjective/Events-last exam Patient seen and examined this morning. She is sleeping comfortably as I enter the room. She denies complaints at this time. Appears to be blood in her mouth on exam, but no active bleeding from her tooth noted. Blood pressures remained stable yesterday and overnight. WBC count decreased from 18.6 to 9.7, but her Hgb also decreased from 11.8-8.6, and her platelet count dropped to 89. Review of Systems HEENT: No Head Aches, No Visual Changes Pulmonary: No Dyspnea, No Cough Cardiovascular: No: Chest Pain, Edema Gastrointestinal: No: Nausea, Vomiting, Abdominal Pain Focused Exam Lactate Level 01/02/20 17:09: Lactic Acid Level 3.79*H 01/02/20 21:00: Lactic Acid Level 2.32*H 01/02/20 23:25: Lactic Acid Level 1.48 Time of Focused Exam: 11:30 Objective Exam Last Set of Vital Signs Vital Signs Date Time Temp Pulse Resp B/P (MAP) Pulse Ox O2 Delivery O2 Flow Rate FiO2 01/03/20 08:33 36.9 01/03/20 08:00 100 Room Air 01/03/20 06:00 60 113/70 (84) 01/02/20 23:00 2.00 01/02/20 17:00 20 Capillary Refill : Less Than 3 Seconds I&O Intake and Output 01/03/20 00:00 Intake Total 2044 ml Output Total 350 ml Balance 1694 ml Intake Oral 1044 ml IV Total 1000 ml Output Urine Total 350 ml # Bowel Movements 2 Daily Weight Change Unsure/Unresponsive General: No Acute Distress HEENT: EOMI, Other (blood in mouth, no active bleeding from left lower tooth site) Lungs: Clear to Auscultation Heart: Regular Rate, No Murmurs Abdomen: Soft, No Tenderness Extremities: No Edema Results/Procedures Lab Laboratory Tests 01/02/20 13:44: Lactic Acid Level 3.86*H 01/02/20 14:20: Stool Occult Blood Immunoassay POSITIVEH 01/02/20 17:09: Lactic Acid Level 3.79*H 01/02/20 21:00: Lactic Acid Level 2.32*H 01/02/20 23:25: Lactic Acid Level 1.48 01/03/20 03:37: White Blood Count 9.7, Red Blood Count 2.67L, Hemoglobin 8.6#L, Hematocrit 26L, Mean Corpuscular Volume 98, Mean Corpuscular Hemoglobin 32, Mean Corpuscular Hemoglobin Concent 33, Red Cell Distribution Width 13.1, Platelet Count 89L, Mean Platelet Volume 10.5H, Neutrophils (%) (Auto) 68, Lymphocytes (%) (Auto) 25, Monocytes (%) (Auto) 5, Eosinophils (%) (Auto) 2, Basophils (%) (Auto) 0, Neutrophils # (Auto) 6.6, Lymphocytes # (Auto) 2.4, Monocytes # (Auto) 0.5, Eosinophils # (Auto) 0.2, Basophils # (Auto) 0.0, Sodium Level 143, Potassium Level 3.2L, Chloride Level 113#H, Carbon Dioxide Level 20L, Anion Gap 10, Blood Urea Nitrogen 63H, Creatinine 1.00, Estimat Glomerular Filtration Rate 54, BUN/Creatinine Ratio 63, Glucose Level 85, Calcium Level 7.5L, Phosphorus Level 2.7, Magnesium Level 1.6 Microbiology 01/02/20 MRSA Screen - Final, Complete MRSA not isolated 01/02/20 Urine Culture - Final, Complete NO GROWTH Radiology CXR 01/01 unremarkable Assessment/Plan Assessment/Plan Assessment & Plan Severe Sepsis- BP stable overnight, continue IV fluids with caution given elevated BNP. WBC count decreased this morning Acute Cystitis- on ceftriaxone Acute Kidney Injury- continue fluids, Cr improved this morning from 1.80 to 1.00. Hypoxia- improved this morning, maintaining O2 on room air. Continue to monitor Anemia- possibly dilutional, will recheck at noon today Thrombocytopenia- possibly dilutional, will recheck at noon today Hypokalemia- replace potassium DVT prophylaxis- Enoxaparin held for now due to decreased Hgb and platelets FERNANDA REYNOLDS MD 01/03/20 1216: Assessment/Plan Assessment/Plan (1) Anemia Status: Acute Assessment & Plan: Possibly due to bleeding from dental extraction, but does not appear to be significant on exam. Hemoccult positive, if persistent dropping will consult Surgery to consider scope. Hold enoxaparin. Qualifiers: (2) Thrombocytopenia Status: Acute Assessment & Plan: Possibly infection related, monitor. 01/02 worsened, hold enoxaparin (3) Hypoxia Status: Resolved Assessment & Plan: Possibly end organ due to sepsis versus fluid overload, however fluids continue to be needed for her hypotension and respiratory status is stable on 4 lpm able to wean to 3 lpm while doing exam. Monitor closely, will likely need lasix after fluid resuscitation. Clinic chart indicates history of COPD but is not on any inhalers, unclear diagnosis. (4) Elevated brain natriuretic peptide (BNP) level Status: Acute Assessment & Plan: No known history of CHF, check echo and monitor respiratory status closely. 01/02 Echo with EF 55-60%, grade 1 diastolic dysfunction, mild aortic regurg. (5) Acute cystitis without hematuria Status: Acute Assessment & Plan: Ceftriaxone (6) Acute renal injury Status: Resolved Assessment & Plan: Suspect secondary to sepsis, IVF and monitor. (7) Severe sepsis Status: Resolved Assessment & Plan: Secondary to urinary tract infection. Initially with low BP which is improved after fluid resuscitation as well as lactic acid above 4. Norepinephrine ordered if needed. Continue NS @ 150 with caution given elevated BNP. Repeat lactic acid. 01/02 lactic acid down to normal, BP okay, did not require pressors. (8) History of breast cancer Status: Chronic Assessment & Plan: On tamoxifen, has had right mastectomy. (9) DVT prophylaxis Status: Acute Assessment & Plan: Hold pharmacologic due to worsening anemia and thrombocytopenia and bleeding from dental extraction. Supervisory-Addendum Brief Verification & Attestation Participated in pt care: history, MDM, physical Personally performed: exam, history, MDM, supervision of care Care discussed with: Medical Student Procedures: n/a I personally saw and examined this patient today. I performed my own history and physical exam and my findings are the same as those documented by the medical student. See problem list for my assessment and plan. LEE GARDINER,MED STUDENT Jan 03, 2020 11:54 FERNANDA REYNOLDS MD Jan 03, 2020 12:16
[2020-01-03 12:06] LABS: HEMOGLOBIN 7.8 G/DL (11.5-16.0); MEAN PLATELET VOLUME 9.7 FL (7.4-10.4); WHITE BLOOD COUNT 8.3 10^3/uL (4.3-11.0)
[2020-01-03] MEDS: cefTRIAXone FOR IV USE 1,000 MG in WATER (STERILE) FOR INJECTION 10 ML IV SCH (13:36)
--- NOTE | 2020-01-03 14:55 | NUR ---
"RD ASSESSMENT PMHx: CA(breast); HTN; dementia; GERD; chronic UTI PT INTERACTION: Note has dementia and is oriented to person. Note all diet hx information gathered is per chart review. Note avg PO intake 25% x3meal. Note last BM was 01/01, and pt not currently on bowel regimen. Note unable to determine recent wt hx. ABNORMAL NUTRITION-RELATED LAB VALUES LOW: K 3.2; Ca 7.5 HIGH: Cl 113; BUN 63 Est. kcal needs: 1350 kcal | 25 kcal/kg Est. Pro needs: 54 g Pro | 1.0 g Pro/kg PES STATEMENT: Inadequate oral intake (NI-2.1) related to loss of appetite | confusion as evidenced by chart review | avg PO intake 25% x3meal INTERVENTION: Continue with current diet order of DYS2 Mechanically Altered diet. Add Ensure Enlive (vary) to meals TID, for increased kcal intake. Provides 350 kcal and 13 g Pro per serving. Will continue to follow and reassess as pt needs, intake, and status change. MONITOR/EVALUATE: PO Intake; Plan of Care; Hydration Status; Weight Status; Lab Values Ann Marie Chandra, MS, RD, LD"
[2020-01-03 16:25] LABS: HEMOGLOBIN 7.3 G/DL (11.5-16.0); MEAN PLATELET VOLUME 10.2 FL (7.4-10.4); WHITE BLOOD COUNT 6.7 10^3/uL (4.3-11.0)
[2020-01-03] MEDS: MIRTAZAPINE 15 MG (REMERON) TAB PO SCH (20:43)
[2020-01-04] VITALS (12 sets, daily range): BP systolic 113–144; BP diastolic 60–94
[2020-01-04] MEDS: VASOPRESSIN INJECTION 20 UNIT in NS (IVPB) 100 ML IV SCH (00:14)
[2020-01-04] MEDS: LACTATED RINGERS 1,000 ML IV SCH ×3 (00:14→05:17)
[2020-01-04 04:24] LABS: BASOPHILS % (AUTO) 1 % (0-10); EOSINOPHILS # (AUTO) 0.3 10^3/uL (0.0-0.3); EOSINOPHILS % (AUTO) 4 % (0-10); HEMATOCRIT 23 % (35-52); HEMOGLOBIN 7.3 G/DL (11.5-16.0); LYMPHOCYTES # (AUTO) 1.5 X 10^3 (1.0-4.0); LYMPHOCYTES % (AUTO) 26 % (12-44); MEAN CORPUSCULAR HEMOGLOBIN 32 PG (25-34); MEAN CORPUSCULAR HGB CONC 32 G/DL (32-36); MEAN CORPUSCULAR VOLUME 99 FL (80-99); MEAN PLATELET VOLUME 10.6 FL (7.4-10.4); MONOCYTES # (AUTO) 0.2 X 10^3 (0.0-1.0); MONOCYTES % (AUTO) 4 % (0-12); NEUTROPHILS # (AUTO) 3.8 X 10^3 (1.8-7.8); NEUTROPHILS % (AUTO) 65 % (42-75); PLATELET COUNT 85 10^3/uL (130-400); WHITE BLOOD COUNT 5.8 10^3/uL (4.3-11.0)
[2020-01-04 04:38] LABS: CHLORIDE 115 MMOL/L (98-107); POTASSIUM 3.6 MMOL/L (3.6-5.0); SODIUM 143 MMOL/L (135-145)
[2020-01-04 04:39] LABS: CALCIUM 7.8 MG/DL (8.5-10.1); GLUCOSE 100 MG/DL (70-105)
[2020-01-04 04:41] LABS: CARBON DIOXIDE 19 MMOL/L (21-32)
[2020-01-04 04:43] LABS: CREATININE SERUM 0.77 MG/DL (0.60-1.30); GFR ESTIMATED > 60; PHOSPHORUS 1.9 MG/DL (2.3-4.7)
[2020-01-04 04:44] LABS: BUN/CREATININE RATIO 36
[2020-01-04 04:45] LABS: MAGNESIUM 1.9 MG/DL (1.6-2.4)
[2020-01-04] MEDS: NOREPINEPHRINE 4 MG/250 ML 250 ML IV SCH (04:52)
[2020-01-04] MEDS: POTASSIUM CL 10MEQ/50ML IVPB 50 ML IV SCH ×2 (05:17→06:07)
[2020-01-04] MEDS ORDERED: KCL 20 MEQ TAB (K-DUR) PO SCH (06:00)
[2020-01-04] MEDS ORDERED: MAGNESIUM 1 GM/100 ML IVPB 100 ML IV SCH (06:00)
[2020-01-04] MEDS ORDERED: POTASSIUM CL 10MEQ/50ML IVPB 50 ML IV SCH (06:00)
--- NOTE | 2020-01-04 06:26 | Pulmonary Consultation ---
History of Present Illness History of Present Illness Date Seen by Provider: Jan 04, 2020 Time Seen by Provider: 06:21 Date of Admission Allergies and Home Medications Allergies Coded Allergies: No Known Drug Allergies (Unverified , 10/06/18) Home Medications Acetaminophen 325 Mg Capsule, 650 MG PO Q4H PRN for PAIN-MILD (1-4) OR TEMPATURE, (Reported) Aspirin 81 Mg Tablet.dr, 81 MG PO DAILY, (Reported) Carbamazepine 100 Mg Tab.chew, 100 MG PO 0800,1200,1700, (Reported) TAKES THREE TIMES DAILY Ibuprofen 400 Mg Tablet, 400 MG PO Q8H PRN for PAIN-MILD (1-4), (Reported) Ketorolac Tromethamine 5 Ml Drops, 1 DROPS OD QID, (Reported) Krill Oil 500 Mg Capsule, 500 MG PO DAILY, (Reported) Magnesium Oxide 250 Mg Tablet, 250 MG PO DAILY, (Reported) Mirtazapine 15 Mg Tablet, 15 MG PO HS, (Reported) Multivitamin 1 Each Tablet, 1 EACH PO DAILY, (Reported) Polyethylene Glycol 3350 17 Gm Powd.pack, 17 GM PO DAILY PRN for CONSTIPATION-2N D LINE, (Reported) Tamoxifen Citrate 20 Mg Tablet, 20 MG PO DAILY, (Reported) [Magic Mouthwash] , Q6H PRN for MOUTH PAIN, (Reported) TAKE 1 SIP THEN SWISH, HOLD AND SPITOUT Past Vjlozlk-Hvgksy-Yvxvfl Hx Past Med/Social Hx: Reviewed Nursing Past Med/Soc Hx Patient Social History Alcohol Use: Denies Use Recreational Drug Use: No Smoking Status: Current Everyday Smoker Type Used: Cigarettes 2nd Hand Smoke Exposure: Yes Recent Foreign Travel: No Contact w/Someone Who Travel: No Recent Infectious Disease Expo: No Recent Hopitalizations: No Physical Abuse: No Sexual Abuse: No Mistreated: No Fear: No Seasonal Allergies Seasonal Allergies: No Past Medical History Surgeries: No Respiratory: No Cardiac: Yes Hypertension Neurological: Yes Dementia Genitourinary: Yes UTI-Chronic Gastrointestinal: Yes Gastroesophageal Reflux Musculoskeletal: No Endocrine: No HEENT: No Cancer: Yes Breast Did You Recieve Any Treatments: Yes Psychosocial: No Integumentary: No Blood Disorders: No Review of Systems Time Seen by Provider: 06:27 Sepsis Event Evaluation Height, Weight, BMI Height: 5'6.00" Weight: 110lbs. 0oz. 49.557761yf; 22.21 BMI Method:Stated Exam Exam Vital Signs Date Time Temp Pulse Resp B/P (MAP) Pulse Ox O2 Delivery O2 Flow Rate FiO2 01/04/20 06:00 53 12 126/91 (103) 94 Room Air 01/04/20 05:00 49 15 113/60 (77) 97 Room Air 01/04/20 04:00 97 Room Air 01/04/20 04:00 57 18 128/63 (84) 95 Room Air 01/04/20 03:00 61 12 125/75 (92) 97 Room Air 01/04/20 02:00 50 16 135/65 (88) 96 Room Air 01/04/20 01:00 60 14 116/64 (81) 96 Room Air 01/04/20 01:00 64 01/04/20 00:00 55 19 139/75 (96) 97 Room Air 01/04/20 00:00 36.8 01/04/20 00:00 97 Room Air 01/03/20 23:00 58 24 97 Room Air 01/03/20 22:00 66 22 137/104 (115) 97 Room Air 01/03/20 21:00 64 20 110/85 (93) 97 Room Air 01/03/20 20:00 36.9 01/03/20 20:00 62 19 121/76 (91) 97 Room Air 01/03/20 20:00 97 Room Air 01/03/20 19:00 55 18 125/66 (85) 96 Room Air 01/03/20 19:00 60 01/03/20 18:00 63 22 129/72 (91) 97 Room Air 01/03/20 17:00 60 13 97 Room Air 01/03/20 16:00 97 Room Air 01/03/20 16:00 59 9 97 Room Air 01/03/20 15:50 37.0 01/03/20 15:00 60 12 126/60 (82) 98 Room Air 01/03/20 14:00 62 10 132/69 (90) 98 Room Air 01/03/20 13:20 54 01/03/20 13:00 57 18 105/60 (75) 97 Room Air 01/03/20 12:00 99 Room Air 01/03/20 12:00 61 11 127/94 (105) 97 Room Air 01/03/20 11:56 36.8 01/03/20 11:00 63 11 111/65 (80) 97 Room Air 01/03/20 10:00 60 6 103/68 (80) 94 Room Air 01/03/20 09:00 58 12 111/76 (88) 97 Room Air 01/03/20 08:33 36.9 01/03/20 08:00 100 Room Air 01/03/20 08:00 69 9 115/69 (84) 95 Room Air 01/03/20 07:00 56 01/03/20 07:00 61 127/73 (91) 99 Room Air 01/03/20 06:54 36.6 01/03/20 06:30 36.5 l I & O 01/04/20 07:00 Intake Total 1900 ml Output Total 1750 ml Balance 150 ml Height & Weight Height: 5'6.00" Weight: 110lbs. 0oz. 49.607615dh; 22.21 BMI Method:Stated General Appearance: No Apparent Distress, Thin HEENT: PERRL/EOMI, Other (clot to left lower anterior gum where tooth recently pulled. no active bleeding) Neck: Non Tender, Supple Respiratory: Chest Non Tender, Lungs Clear, No Accessory Muscle Use, No Respiratory Distress, Decreased Breath Sounds Cardiovascular: Regular Rate, Rhythm, Normal Peripheral Pulses Capillary Refill: Less Than 3 Seconds Peripheral Pulses: 2+ Carotid (R), 2+ Carotid (L), 2+ Radial Pulses (R), 2+ Radial Pulses (L) Gastrointestinal: normal bowel sounds, non tender, soft Extremity: Normal Capillary Refill, No Pedal Edema Neurologic/Psychiatric: Alert, Oriented x3 Skin: Warm/Dry, Pallor Results Lab Laboratory Tests 01/02/20 09:42 01/03/20 03:37 01/03/20 11:55 01/03/20 16:18 01/04/20 03:25 Assessment/Plan Assessment/Plan Severe sepsis -IVF -[place] UTI with acute cystitis -Rocephin Anemia with occult positive stool -Start protonix Thrombocytopenia -Monitor Grade 1 diastolic dysfunction JONY HINOJOSA DO Jan 04, 2020 06:26
--- NOTE | 2020-01-04 08:00 | Diagnostic Imaging Report ---
Indication: Dyspnea. Findings: The lungs are clear. No failure, effusion or pneumothorax. Tortuosity of the thoracic aorta stable from comparisons. No acute finding. Impression: Stable chest. Dictated by: Dictated on workstation # [id number]
[2020-01-04] MEDS ORDERED: POTASSIUM PHOSPHATE INJ 30 MM in NS (IVPB) 250 ML IV NR (08:37)
[2020-01-04] MEDS: ASPIRIN E.C. 81 MG (ECOTRIN) TAB PO SCH (09:51)
[2020-01-04] MEDS: carBAMazepine 100 MG (TEGretol) CHEW PO SCH ×3 (09:51→18:05)
[2020-01-04] MEDS: TAMOXIFEN 10 MG (NOLVADEX) TAB PO SCH (09:51)
[2020-01-04] MEDS: PANTOPRAZOLE 40 MG (PROTONIX) VIAL IV SCH ×2 (09:51→20:58)
--- NOTE | 2020-01-04 10:38 | Physician Query Clarification ---
PQ-Uncertain Diagnosis Admission/Discharge Admission Date: Jan 02, 2020 at 13:28 Discharge Date: Dr. Nielson, The medical record reflects the following clinical scenario: History/Risk Factors: Severe sepsis Hypotension Clinical Findings:01/01 BP 79/56, Lactic acid 4.95 on admission. Assessment and plan per your H&P: Initially low BP which is improved after fluid resuscitation as well as lactic acid above 4. Norepinephrine ordered if needed. Treatment:NS @ 150 Question: Is Septic Shock a clinically valid diagnosis? Septic shock was documented in the 01/01 ED record impression with no further documentation in the medical record. Please document a response in Progress Note or Discharge Summary. 1. Yes, clinically valid, condition resolved. 2. No, condition ruled out. 3. Other, with explanation of clinical findings. 4. Undetermined, no explanation for clinical findings. PHYSICIAN RESPONSE Diagnosis clinically valid: Yes, Conditon resolved Please remember a lack of response to the above will prompt a phone page by [facility]/Coding staff. In responding to this query, please exercise your independent professional judgment. The purpose of this communication is to more accurately reflect the complexity of your patients condition. The fact that a question is asked does not imply that any particular answer is desired or expected. Thank you for your timely response to this clarification. Requestors name: Demetra Rosas [facility] Phone # ext [phone] or [phone] THIS PHYSICIAN QUERY FORM IS A PERMANENT PART OF THE MEDICAL RECORD DEMETRA ROSAS Jan 04, 2020 10:38 FERNANDA NIELSON MD Jan 04, 2020 15:46
[2020-01-04] MEDS: cefTRIAXone FOR IV USE 1,000 MG in WATER (STERILE) FOR INJECTION 10 ML IV SCH (14:02)
--- NOTE | 2020-01-04 14:55 | Progress Note ---
Subjective Subjective/Events-last exam Afebrile, states she is feeling "terrible", when asked to clarify she states she never should've smoked after her dental extraction. Focused Exam Lactate Level 01/02/20 17:09: Lactic Acid Level 3.79*H 01/02/20 21:00: Lactic Acid Level 2.32*H 01/02/20 23:25: Lactic Acid Level 1.48 Time of Focused Exam: 11:30 Objective Exam Last Set of Vital Signs Vital Signs Date Time Temp Pulse Resp B/P (MAP) Pulse Ox O2 Delivery O2 Flow Rate FiO2 01/04/20 12:46 54 01/04/20 12:00 17 137/67 (90) Room Air 01/04/20 12:00 37.0 01/04/20 08:00 97 01/02/20 23:00 2.00 Capillary Refill : Less Than 3 Seconds I&O Intake and Output 01/04/20 00:00 Intake Total 2500 ml Output Total 1500 ml Balance 1000 ml Intake Oral 1200 ml IV Total 1300 ml Output Urine Total 1500 ml General: Alert, No Acute Distress Lungs: Clear to Auscultation, Normal Air Movement Heart: Regular Rate, No Murmurs Neuro: Normal Speech Psych/Mental Status: Mood NL Results/Procedures Lab Laboratory Tests 01/03/20 16:18: White Blood Count 6.7, Red Blood Count 2.27L, Hemoglobin 7.3L, Hematocrit 22L, Mean Corpuscular Volume 99, Mean Corpuscular Hemoglobin 32, Mean Corpuscular Hemoglobin Concent 33, Red Cell Distribution Width 13.3, Platelet Count 77L, Mean Platelet Volume 10.2 01/04/20 03:25: White Blood Count 5.8, Red Blood Count 2.28L, Hemoglobin 7.3L, Hematocrit 23L, Mean Corpuscular Volume 99, Mean Corpuscular Hemoglobin 32, Mean Corpuscular Hemoglobin Concent 32, Red Cell Distribution Width 13.2, Platelet Count 85L, Mean Platelet Volume 10.6H, Neutrophils (%) (Auto) 65, Lymphocytes (%) (Auto) 26, Monocytes (%) (Auto) 4, Eosinophils (%) (Auto) 4, Basophils (%) (Auto) 1, Neutrophils # (Auto) 3.8, Lymphocytes # (Auto) 1.5, Monocytes # (Auto) 0.2, Eosinophils # (Auto) 0.3, Basophils # (Auto) 0.0, Sodium Level 143, Potassium Level 3.6, Chloride Level 115H, Carbon Dioxide Level 19L, Anion Gap 9, Blood Urea Nitrogen 28H, Creatinine 0.77, Estimat Glomerular Filtration Rate > 60, BUN/Creatinine Ratio 36, Glucose Level 100, Calcium Level 7.8L, Phosphorus Level 1.9L, Magnesium Level 1.9 Microbiology 01/02/20 MRSA Screen - Final, Complete MRSA not isolated 01/02/20 Urine Culture - Final, Complete NO GROWTH 01/02/20 Blood Culture - Preliminary, Resulted No growth Radiology CXR 01/01 unremarkable Assessment/Plan Assessment/Plan Assessment & Plan Severe Sepsis- BP stable overnight, continue IV fluids with caution given elevated BNP. WBC count decreased this morning Acute Cystitis- on ceftriaxone Acute Kidney Injury- continue fluids, Cr improved this morning from 1.80 to 1.00. Hypoxia- improved this morning, maintaining O2 on room air. Continue to monitor Anemia- possibly dilutional, will recheck at noon today Thrombocytopenia- possibly dilutional, will recheck at noon today Hypokalemia- replace potassium DVT prophylaxis- Enoxaparin held for now due to decreased Hgb and platelets (1) Anemia Status: Acute Assessment & Plan: Possibly due to bleeding from dental extraction, but does not appear to be significant on exam. Hemoccult positive, if persistent dropping will consult Surgery to consider scope. Hold enoxaparin. 01/03 low but stable, will monitor closely Qualifiers: (2) Thrombocytopenia Status: Acute Assessment & Plan: Possibly infection related, monitor. 01/02 worsened, hold enoxaparin (3) Hypoxia Status: Resolved Assessment & Plan: Possibly end organ due to sepsis versus fluid overload, however fluids continue to be needed for her hypotension and respiratory status is stable on 4 lpm able to wean to 3 lpm while doing exam. Monitor closely, will likely need lasix after fluid resuscitation. Clinic chart indicates history of COPD but is not on any inhalers, unclear diagnosis. 01/03 on room air (4) Elevated brain natriuretic peptide (BNP) level Status: Acute Assessment & Plan: No known history of CHF, check echo and monitor respiratory status closely. 01/02 Echo with EF 55-60%, grade 1 diastolic dysfunction, mild aortic regurg. (5) Acute cystitis without hematuria Status: Acute Assessment & Plan: Ceftriaxone (6) Acute renal injury Status: Resolved Assessment & Plan: Suspect secondary to sepsis, IVF and monitor. (7) Severe sepsis Status: Resolved Assessment & Plan: Secondary to urinary tract infection. Initially with low BP which is improved after fluid resuscitation as well as lactic acid above 4. Norepinephrine ordered if needed. Continue NS @ 150 with caution given elevated BNP. Repeat lactic acid. 01/02 lactic acid down to normal, BP okay, did not require pressors. (8) History of breast cancer Status: Chronic Assessment & Plan: On tamoxifen, has had right mastectomy. (9) DVT prophylaxis Status: Acute Assessment & Plan: Hold pharmacologic due to worsening anemia and thrombocytopenia and bleeding from dental extraction. FERNANDA REYNOLDS MD Jan 04, 2020 14:55
--- NOTE | 2020-01-04 14:59 | NUR ---
CM/SS: Visited with pt as per consult related to pt needing Chips Screen Tender Care Plan: Pt to return back to [facility] when deemed appropriate Summary: Pt reports feeling better. She reports that she has been living at [facility] for over a year. She feels ok to return back there when appropriate. Pt seems to enjoy the other individuals that live at the [facility]. Pt enjoys the director Naty as well. Pt is able to give some life review and is looking forward to being able to return there when appropriate.
[2020-01-04] MEDS ORDERED: HALOPERIDOL 0.5 MG (HALDOL) TAB PO ONE (19:30)
[2020-01-04] MEDS ORDERED: HALOPERIDOL 2 MG (HALDOL) TABLET PO ONE (19:30)
[2020-01-04] MEDS: MIRTAZAPINE 15 MG (REMERON) TAB PO SCH (20:58)
--- NOTE | 2020-01-04 21:13 | NUR ---
SBAR report called to Shahla RN on 4th floor, patient transferring to room 405 via wheel chair by this nurse, arrived to room 405 at 2113, NT and RN aware of patients arrival. Bed alarm on.
--- NOTE | 2020-01-04 21:15 | NUR ---
PT REPORT RECEIVED FROM JOSEPH FRANKLIN AT APPROXIMATELY 2039. PT WAS TRANSPORTED TO ROOM 405 BY ICU NURSE VIA W/C. THIS RN ASSUMED PT CARE AT THIS TIME.
[2020-01-05 00:54] VITALS: BP 142/77
[2020-01-05] MEDS ORDERED: HALOPERIDOL 0.5 MG (HALDOL) TAB ONE ×2 (01:55→17:52)
[2020-01-05] MEDS ORDERED: HALOPERIDOL 2 MG (HALDOL) TABLET PO ONE (02:00)
[2020-01-05 04:52] VITALS: BP 132/79
[2020-01-05 05:56] LABS: HEMOGLOBIN 7.3 G/DL (11.5-16.0); WHITE BLOOD COUNT 4.9 10^3/uL (4.3-11.0)
[2020-01-05 06:07] LABS: CHLORIDE 110 MMOL/L (98-107); POTASSIUM 3.9 MMOL/L (3.6-5.0); SODIUM 142 MMOL/L (135-145)
[2020-01-05 06:08] LABS: CALCIUM 7.9 MG/DL (8.5-10.1); GLUCOSE 94 MG/DL (70-105)
[2020-01-05 06:10] LABS: CARBON DIOXIDE 24 MMOL/L (21-32)
[2020-01-05 06:12] LABS: CREATININE SERUM 0.73 MG/DL (0.60-1.30); GFR ESTIMATED > 60
[2020-01-05 06:13] LABS: BUN/CREATININE RATIO 25
[2020-01-05 07:40] VITALS: BP 134/70
[2020-01-05] MEDS: carBAMazepine 100 MG (TEGretol) CHEW PO SCH ×3 (08:59→17:49)
[2020-01-05] MEDS: ASPIRIN E.C. 81 MG (ECOTRIN) TAB PO SCH (08:59)
[2020-01-05] MEDS: PANTOPRAZOLE 40 MG (PROTONIX) VIAL IV SCH ×2 (08:59→21:50)
[2020-01-05 11:20] VITALS: BP 134/70
[2020-01-05] MEDS: TAMOXIFEN 10 MG (NOLVADEX) TAB PO SCH (12:56)
--- NOTE | 2020-01-05 13:17 | Progress Note - Hospitalist ---
Subjective HPI/CC On Admission Date Seen by Provider: Jan 05, 2020 Time Seen by Provider: 12:00 Subjective/Events-last exam patient is currently on her right side sleeping. She had been very agitated overnight requiring dose of Haldol for sedation to avoid self-harm. She has a long history of dementia and sundowning. This is been made worse by being in the hospital. Otherwise nursing staff say that she's been doing okay Focused Exam Lactate Level 01/02/20 17:09: Lactic Acid Level 3.79*H 01/02/20 21:00: Lactic Acid Level 2.32*H 01/02/20 23:25: Lactic Acid Level 1.48 Time of Focused Exam: 11:30 Objective Exam Vital Signs Vital Signs Date Time Temp Pulse Resp B/P (MAP) Pulse Ox O2 Delivery O2 Flow Rate FiO2 01/05/20 11:20 37.1 68 22 134/70 (91) 94 Room Air 01/02/20 23:00 2.00 Capillary Refill : Less Than 3 Seconds General Appearance: Chronically ill HEENT: Other (dry oral mucosa) Neck: Limited Range of Motion Respiratory: Lungs Clear, Normal Breath Sounds, No Accessory Muscle Use, No Respiratory Distress Cardiovascular: Regular Rate, Rhythm, No Gallop Gastrointestinal: Normal Bowel Sounds, Non Tender, Soft Extremity: No Pedal Edema Results/Procedures Lab Laboratory Tests 01/05/20 05:35 Patient resulted labs reviewed. Assessment/Plan Assessment and Plan Assess & Plan/Chief Complaint Severe Sepsis--stabilizing Acute Cystitis- on ceftriaxone Acute Kidney Injury- resolved Hypoxia- resolved Anemia- stable for 3 days Thrombocytopenia- improving Hypokalemia- resolved DVT prophylaxis- Enoxaparin held for now due to decreased Hgb and platelets dementia with sundowning when necessary Haldol, stop VIVIANA Torres MD Jan 05, 2020 13:17
--- NOTE | 2020-01-05 13:55 | Physical Therapy Evaluation ---
PT Evaluation-General Medical Diagnosis Admission Date Jan 02, 2020 at 13:28 Medical Diagnosis: anemia Onset Date: Jan 02, 2020 Therapy Diagnosis Therapy Diagnosis: general weakness Height/Weight Height (Feet): 5 Height (Inches): 6.00 Weight (Pounds): 110 Weight (Ounces): 0 Precautions Precautions/Isolations: Fall Prevention, Standard Precautions Weight Bear Status Right Lower Extremity: Right Full Weight Bearing Left Lower Extremity: Left Full Weight Bearing Referral Physician: Dr. Nielson Reason for Referral: Evaluation/Treatment, Strengthening Medical History Pertinent Medical History: Breast CA S/P Mastectomy, GERD, HTN Additional Medical History dementia Current History Presented to ER with bleeding in mouth from recent dental extraction. Reviewed History: Yes Social History Pt. states "I don't know" to questions re: living situation. Prior Prior Level of Function SCALE: Activities may be completed with or without assistive devices. 8-[id number] completes the activity by him/herself with no assistance from a helper. 5-Set-up or Clean-up Assistance-helper sets up or cleans up; patient completes activity. Lindsay assists only prior to or following the activity. 4-Supervision or Touching Assistance-helper provides verbal cues and/or touching/steadying and/or contact guard assistance as patient completes activity. Assistance may be provided throughout the activity or intermittently. 3-Partial/Moderate Assistance-helper does LESS THAN HALF the effort. Lindsay lifts, holds or supports trunk or limbs, but provides less than half the effort. 2-Substantial/Maximal Assistance-helper does MORE THAN HALF the effort. Lindsay lifts or holds trunk or limbs and provides more than half the effort. 0-[id number]-[id number] does ALL the effort. Patient does none of the effort to complete the activity. Or, the assistance of 2 or more helpers is required for the patient to complete the activity. If activity was not attempted, code reason: 7-Patient Refused. 9-Not Applicable-not attempted and the patient did not perform the activity before the current illness, exacerbation or injury. 10-Not Attempted due to Environmental Limitations-(lack of equipment, weather restraints, etc.). 88-Not Attempted due to Medical Conditions or Safety Concerns. Bed Mobility: 6 Transfers (B,C,W/C): 6 Gait: 6 PT Evaluation-Current Subjective Pt. asleep in bed but does awaken to name and reluctantly agrees to therapy. She has no c/o pain. Objective Patient Orientation: Person, Confused ROM/Strength ROM Upper Extremities WFL ROM Lower Extremities WFL Strength Upper Extremities WFL Strength Lower Extremities Grossly 4/5 Integumentary/Posture Integumentary see nursing notes Bowel Incontinence: No Bladder Incontinence: No Neuromuscular (Tone, Coordination, Reflexes) diminished Sensory Vision: Functional Hearing: Functional Transfers Sit to Lying (QC): 4 Lying to Sitting/Side of Bed(Q: 4 Sit to Stand (QC): 4 Toilet Transfer (QC): 4 Gait Does the Patient Walk?: Yes Mode of Locomotion: Walk Anticipated Mode of Locomotion: Walk Walk 10 feet (QC): 4 Distance: 100 ft Gait Assistive Device: FWW Comments/Gait Description slow, shuffled gait, cues needed to use walker safely. Balance Sitting Static: Good Sitting Dynamic: Good Standing Static: Fair Standing Dynamic: Fair Treatment gait training, toileting Assessment/Needs Pt. is a 74 y.o. female with general weakness. She is a poor historian of level of function, living situation. Pt. would benefit from short term PT to improve safe mobility for return home. Rehab Potential: Good PT Snf Goals Field Representatives Director Goals PT Snf Goals Time Frame: Jan 12, 2020 Sit to Lying (QC): 6 Lying-Sitting on Side/Bed(QC): 6 Sit to Stand (QC): 6 Toilet Transfer (QC): 6 Does the Patient Walk: Yes Walk 10 feet (QC): 6 Walk 150 ft (QC): 6 PT Plan Problem List Problem List: Activity Tolerance, Functional Strength, Safety, Balance, Gait, Transfer, Bed Mobility, ROM Treatment/Plan Treatment Plan: Continue Plan of Care Treatment Plan: Bed Mobility, Education, Functional Activity Lissy, Functional Strength, Gait, Safety, Therapeutic Exercise, Transfers Treatment Duration: Jan 12, 2020 Frequency: 6 times per week Estimated Hrs Per Day: .25 hour per day Patient and/or Family Agrees t: Yes Time/GCodes Time In: 1048 Time Out: 1105 Total Billed Treatment Time: 17 Total Billed Treatment 1, LEONILA GT 10' ANAHY ESPINO PT Jan 05, 2020 13:55
--- NOTE | 2020-01-05 14:11 | NUR ---
PT WOKE UP AROUND 1300 AND WAS VERY CONFUSED TO WHERE SHE WAS AND WHAT WAS GOING ON. SHE WAS AMBULATING IN ROOM BY HERSELF AND STARTING TO COMBATIVE WITH STAFF. SHE REPORTED SHE WAS READY TO LEAVE AND WE COULD NOT STOP HER. THIS RN CONTACTED DR REYES AND SHE SAID THAT PT COULD LEAVE IF ASSISTED LIVING WOULD ACCEPT HER ON A TUESDAY. THIS RN CALLED [facility] AND LEFT MESSAGE FOR STAFF AND FOR CINTHIA MARTINEZ. STILL AWAITING CALL BACK. PT WALKED HALLWAY WITH PCT AND THEN WENT BACK TO BED TO SLEEP.
[2020-01-05] MEDS ORDERED: WATER (STERILE) FOR INJECTION 10 ML ONE (16:54)
[2020-01-05 17:00] VITALS: BP 127/74
[2020-01-05] MEDS ORDERED: HALOPERIDOL 2 MG (HALDOL) TABLET PO SCH (17:00)
--- NOTE | 2020-01-05 17:36 | NUR ---
DR REYES HAD ORDERED HALDOL PO FOR [id number]. THIS NURSE HEAD OF ENGLISH CONTACTED HER TO SEE IF SHE WANTED US TO ADMIN THAT MED TONIGHT DUE TO NO ONE CONTACTING ME RE HER GOING HOME. DR REYES SAID YES RESCHEDULE MED FOR 01.04.
[2020-01-05] MEDS: cefTRIAXone FOR IV USE 1,000 MG in WATER (STERILE) FOR INJECTION 10 ML IV SCH ×2 (17:50→19:06)
[2020-01-05 19:30] VITALS: BP 138/62
--- NOTE | 2020-01-05 19:51 | NUR ---
pharmacy had left before pts haldol had been ordered for phan, 01/05/20 1700. The [facility] only had 0.5 mg & [address] of [address] canchola notified and told this rn to pull two 0.5 mg tabs for pt. this nurse typewriter tester did so and had to override haldol in [facility].
[2020-01-06] VITALS: BP 144/64
[2020-01-06 03:50] VITALS: BP 135/60
[2020-01-06 07:51] VITALS: BP 133/63
[2020-01-06] MEDS: TAMOXIFEN 10 MG (NOLVADEX) TAB PO SCH (08:29)
[2020-01-06] MEDS: PANTOPRAZOLE 40 MG (PROTONIX) VIAL IV SCH ×2 (08:30→20:15)
[2020-01-06] MEDS: ASPIRIN E.C. 81 MG (ECOTRIN) TAB PO SCH (08:30)
[2020-01-06] MEDS: HALOPERIDOL 0.5 MG (HALDOL) TAB PO SCH (08:30)
[2020-01-06] MEDS: carBAMazepine 100 MG (TEGretol) CHEW PO SCH ×3 (08:30→17:26)
--- NOTE | 2020-01-06 12:18 | Progress Note - Hospitalist ---
Subjective HPI/CC On Admission Date Seen by Provider: Jan 06, 2020 Time Seen by Provider: 10:00 Subjective/Events-last exam patient is laying in bed but awake and alert and conversant Focused Exam Time of Focused Exam: 11:30 Objective Exam Vital Signs Vital Signs Date Time Temp Pulse Resp B/P (MAP) Pulse Ox O2 Delivery O2 Flow Rate FiO2 01/06/20 09:00 Room Air 01/06/20 07:51 36.9 66 18 133/63 (86) 92 01/02/20 23:00 2.00 Capillary Refill : Less Than 3 Seconds General Appearance: No Apparent Distress, Chronically ill Neck: Non Tender, Supple Respiratory: Lungs Clear, Normal Breath Sounds, No Accessory Muscle Use, No R espiratory Distress Cardiovascular: Regular Rate, Rhythm, No Gallop, No JVD Gastrointestinal: Normal Bowel Sounds, Non Tender, Soft Rectal: Deferred Extremity: Non Tender, No Pedal Edema Neurologic/Psychiatric: Alert Results/Procedures Lab Patient resulted labs reviewed. Assessment/Plan Assessment and Plan Assess & Plan/Chief Complaint Severe Sepsis--stabilizing Acute Cystitis- on ceftriaxone Acute Kidney Injury- resolved Hypoxia- resolved Anemia- stable for 3 days Thrombocytopenia- improving Hypokalemia- resolved DVT prophylaxis- Enoxaparin held for now due to decreased Hgb and platelets dementia with sundowning when necessary Haldol, stop Remeron-patient seems to be doing better Discharge in VIVIANA Murray MD Jan 06, 2020 12:18
[2020-01-06] MEDS: cefTRIAXone FOR IV USE 1,000 MG in WATER (STERILE) FOR INJECTION 10 ML IV SCH (13:03)
--- NOTE | 2020-01-06 14:00 | NUR ---
UP IN CHAIR X 2 TODAY. GETS UP WITHOUT CALLING AND CHAIR EXIT ALARM BEING UTILIZED. HAS DENIED PAIN. SLEEPS FREQUENTLY.
[2020-01-06 16:30] VITALS: BP 149/73
[2020-01-06] MEDS ORDERED: HALOPERIDOL 2 MG (HALDOL) TABLET PO SCH (17:00)
[2020-01-06 23:40] VITALS: BP 151/77
[2020-01-07 08:00] VITALS: BP 174/86
[2020-01-07] MEDS: PANTOPRAZOLE 40 MG (PROTONIX) VIAL IV SCH (09:43)
[2020-01-07] MEDS: carBAMazepine 100 MG (TEGretol) CHEW PO SCH ×2 (09:44→12:24)
[2020-01-07] MEDS: ASPIRIN E.C. 81 MG (ECOTRIN) TAB PO SCH (09:44)
[2020-01-07] MEDS ORDERED: amLODIPine 5 MG (NORVASC) TAB ONE (09:44)
[2020-01-07] MEDS: HALOPERIDOL 0.5 MG (HALDOL) TAB PO SCH (09:44)
[2020-01-07] MEDS: TAMOXIFEN 10 MG (NOLVADEX) TAB PO SCH (09:44)
[2020-01-07] MEDS ORDERED: amLODIPine 5 MG (NORVASC) TAB PO ONE (09:45)
[2020-01-07 10:00] LABS: BASOPHILS % (AUTO) 1 % (0-10); EOSINOPHILS # (AUTO) 0.2 10^3/uL (0.0-0.3); EOSINOPHILS % (AUTO) 4 % (0-10); HEMATOCRIT 23 % (35-52); HEMOGLOBIN 7.6 G/DL (11.5-16.0); LYMPHOCYTES # (AUTO) 0.8 X 10^3 (1.0-4.0); LYMPHOCYTES % (AUTO) 16 % (12-44); MEAN CORPUSCULAR HEMOGLOBIN 33 PG (25-34); MEAN CORPUSCULAR HGB CONC 33 G/DL (32-36); MEAN CORPUSCULAR VOLUME 100 FL (80-99); MEAN PLATELET VOLUME 10.1 FL (7.4-10.4); MONOCYTES # (AUTO) 0.5 X 10^3 (0.0-1.0); MONOCYTES % (AUTO) 10 % (0-12); NEUTROPHILS # (AUTO) 3.2 X 10^3 (1.8-7.8); NEUTROPHILS % (AUTO) 69 % (42-75); PLATELET COUNT 133 10^3/uL (130-400); WHITE BLOOD COUNT 4.7 10^3/uL (4.3-11.0)
[2020-01-07 10:11] LABS: ALBUMIN 2.9 GM/DL (3.2-4.5); CHLORIDE 107 MMOL/L (98-107)
[2020-01-07 10:12] LABS: POTASSIUM 3.7 MMOL/L (3.6-5.0); SODIUM 140 MMOL/L (135-145)
[2020-01-07 10:13] LABS: CALCIUM 8.1 MG/DL (8.5-10.1)
[2020-01-07 10:14] LABS: GLUCOSE 128 MG/DL (70-105)
[2020-01-07 10:15] LABS: CARBON DIOXIDE 26 MMOL/L (21-32)
[2020-01-07 10:16] LABS: BILIRUBIN,TOTAL 0.2 MG/DL (0.1-1.0)
[2020-01-07 10:17] LABS: ALKALINE PHOSPHATASE 58 U/L (40-136); CREATININE SERUM 0.83 MG/DL (0.60-1.30); GFR ESTIMATED > 60
[2020-01-07 10:18] LABS: BUN/CREATININE RATIO 24
[2020-01-07 10:20] LABS: ALANINE AMINOTRANSFERASE 10 U/L (0-55)
[2020-01-07] MEDS ORDERED: HALO0.5T PO (10:21)
[2020-01-07] MEDS ORDERED: AMLO5TAB9 PO (10:21)
[2020-01-07] MEDS ORDERED: PANT40TA52 PO (10:21)
--- NOTE | 2020-01-07 10:22 | Discharge Summary ---
Discharge Summary Hospital Course Was the Problem List Reviewed?: Yes Hospital Course Date of Admission: Jan 02, 2020 at 13:28 Admission Diagnosis : Family Physician/Provider: Kunal Odom MD Date of Discharge: 01/07/20 Discharge Diagnosis: Sepsis UTI but urine culture no growth to date Psychosis Anemia Breast cancer Hypertension Hospital Course: Hospital Course: Pt had a lengthy hospital course after being admitted for sepsis and UTI placed on broad spectrum antibiotics. Labs were monitored noting chronic anemia. Pt has a history of some psychosis so she was placed on Haldol with good results. Elevated BP was managed with Amlodipine. PT and OT were consulted, did not require penitentiary placement or inpatient rehab, and she will go back to her boarding house in [facility] and will follow up on lab values on iron level as an outpatient. Labs and Pending Lab Test: Laboratory Tests 01/07/20 09:51: White Blood Count 4.7, Red Blood Count 2.31L, Hemoglobin 7.6L, Hematocrit 23L, Mean Corpuscular Volume 100H, Mean Corpuscular Hemoglobin 33, Mean Corpuscular Hemoglobin Concent 33, Red Cell Distribution Width 14.0, Platelet Count 133, Mean Platelet Volume 10.1, Neutrophils (%) (Auto) 69, Lymphocytes (%) (Auto) 16, Monocytes (%) (Auto) 10, Eosinophils (%) (Auto) 4, Basophils (%) (Auto) 1, Neutrophils # (Auto) 3.2, Lymphocytes # (Auto) 0.8L, Monocytes # (Auto) 0.5, Eosinophils # (Auto) 0.2, Basophils # (Auto) 0.0, Sodium Level 140, Potassium Level 3.7, Chloride Level 107, Carbon Dioxide Level 26, Anion Gap 7, Blood Urea Nitrogen 20H, Creatinine 0.83, Estimat Glomerular Filtration Rate > 60, BUN/Creatinine Ratio 24, Glucose Level 128H, Calcium Level 8.1L, Corrected Calcium 9.0, Iron Level [Pending], Total Bilirubin 0.2, Aspartate Amino Transf (AST/SGOT) 16, Alanine Aminotransferase (ALT/SGPT) 10, Alkaline Phosphatase 58, Total Protein 5.0L, Albumin 2.9L Microbiology 01/02/20 MRSA Screen - Final, Complete MRSA not isolated 01/02/20 Urine Culture - Final, Complete NO GROWTH 01/02/20 Blood Culture - Preliminary, Resulted No growth Home Meds Active Pantoprazole Sodium 40 Mg Tablet.dr 40 Mg PO DAILY Haloperidol 0.5 Mg Tablet 0.5 Mg PO DAILY Amlodipine Besylate 5 Mg Tablet 5 Mg PO DAILY Reported [Magic Mouthwash] Q6H PRN TAKE 1 SIP THEN SWISH, HOLD AND SPITOUT Miralax (Polyethylene Glycol 3350) 17 Gm Powd.pack 17 Gm PO DAILY PRN Ibuprofen 400 Mg Tablet 400 Mg PO Q8H PRN Tylenol (Acetaminophen) 325 Mg Capsule 650 Mg PO Q4H PRN Magnesium (Magnesium Oxide) 250 Mg Tablet 250 Mg PO DAILY Krill Oil 500 Mg Capsule 500 Mg PO DAILY Ketorolac Tromethamine 5 Ml Drops 1 Drops OD QID Multivitamin 1 Each Tablet 1 Each PO DAILY Remeron (Mirtazapine) 15 Mg Tablet 15 Mg PO HS Carbamazepine 100 Mg Tab.chew 100 Mg PO 0800,1200,1700 TAKES THREE TIMES DAILY Tamoxifen Citrate 20 Mg Tablet 20 Mg PO DAILY Aspirin EC (Aspirin) 81 Mg Tablet.dr 81 Mg PO DAILY Assessment/Pt Instructions chc 1 week Discharge Planning: <30 minutes discharge planning Discharge Instructions Discharge Diet: No Restrictions Activity as Tolerated: Yes Discharge Physical Examination Vital Signs Vital Signs Date Time Temp Pulse Resp B/P (MAP) Pulse Ox O2 Delivery O2 Flow Rate FiO2 01/07/20 08:00 36.7 80 17 174/86 (115) 96 Room Air 01/02/20 23:00 2.00 General Appearance: No Apparent Distress, WD/WN, Chronically ill Respiratory: Normal Breath Sounds Cardiovascular: Regular Rate, Rhythm Neurologic/Psychiatric: Alert, Oriented x3 Allergies: Coded Allergies: No Known Drug Allergies (Unverified , 10/06/18) Discharge Summary Date of Admission Jan 02, 2020 at 13:28 Date of Discharge Discharge Date: Jan 07, 2020 MONO PÉREZ DO Jan 07, 2020 10:22
--- NOTE | 2020-01-07 12:07 | Progress Note ---
CYNTHIA WANG MED STUDENT 01/07/20 1207: Progress Note Hospital course: 01/02/20 - 01/07/20 Ashlee was admitted for bleeding teeth; she recently had a tooth extraction and noticed bleeding which prompted her to go to the ER. On arrival she was hypotensive(79/56) and mildly confused. UTI/Sepsis was suspected and she was started on Ceftriaxone. Blood/urine cultures returned negative and Ceftriaxone was dc'd. She required admin of Haldol r/t sundowning and agitation. Hemoccult was positive. Hgb was initially 11.8 and stabilized at 7.3-7.8 for the past 3 days. SAMINA PÉREZ DO 01/08/20 0518: Supervisory-Addendum Brief Verification & Attestation Participated in pt care: history, MDM, physical Personally performed: exam, history, MDM, supervision of care Care discussed with: Medical Student Procedures: n/a Results interpretation: Verified all documentation Verification and Attestation of Medical Student E/M Service A medical student performed and documented this service in my presence. I reviewed and verified all information documented by the medical student and made modifications to such information, when appropriate. I personally performed the physical exam and medical decision making. Samina Pérez Jan 08, 2020,05:18 CYNTHIA WANG MED STUDENT Jan 07, 2020 12:07 SAMINA PÉREZ DO Jan 08, 2020 05:18
--- NOTE | 2020-01-07 12:41 | NUR ---
CM/SS: Visited with pt as to plan for discharge Plan: Pt to return to [facility] [place] today Summary: Pt feeling better today and is ok to return to the assisted living on today. Pt has been using the walker to transfer to the chair and bed. Telephone call to Naty - [phone]- she is informed that pt will be discharged today and they are able to crop picker pt at 2pm today. Discharge orders faxed to [place] [phone]
--- NOTE | 2020-01-07 14:30 | NUR ---
REPORT GIVEN TO CINTHIA WHEN SHE ARRIVED TO CORROSION CONTROL TECHNICIAN THE PATIENT.
[2020-01-07 14:38] VITALS: BP 174/86
[2020-01-08] MEDS ORDERED: amLODIPine 5 MG (NORVASC) TAB PO SCH (09:00)
== END 2020-01-07 14:38 | DRG 871 ==
LOC: EDUNIT# 09:24 → ER FS 09:25 → ICU 13:28 → 4TH 01-04 21:00
PROVIDERS: ADMIT Family Medicine; ATTEND Internal Medicine
DX: A41.9 Sepsis, unspecified organism (principal); R65.21 Severe sepsis with septic shock; N30.00 Acute cystitis without hematuria; N17.9 Acute kidney failure, unspecified; K91.840 Postprocedural hemorrhage of a digestive system organ or structure following a digestive system procedure; F03.91 Unspecified dementia, unspecified severity, with behavioral disturbance; F05 Delirium due to known physiological condition; E86.0 Dehydration; Z66 Do not resuscitate; I95.9 Hypotension, unspecified; J44.9 Chronic obstructive pulmonary disease, unspecified; R09.02 Hypoxemia; I35.1 Nonrheumatic aortic (valve) insufficiency; E87.70 Fluid overload, unspecified; R19.5 Other fecal abnormalities; D64.9 Anemia, unspecified; E87.6 Hypokalemia; D69.59 Other secondary thrombocytopenia; R40.0 Somnolence; I10 Essential (primary) hypertension; K21.9 Gastro-esophageal reflux disease without esophagitis; F17.210 Nicotine dependence, cigarettes, uncomplicated; C50.911 Malignant neoplasm of unspecified site of right female breast; Z90.11 Acquired absence of right breast and nipple
CPT/HCPCS: 36415; 51702; 71045; 80048; 80053; 81000; 82274; 83540; 83605; 83735; 83880; 84100; 84484; 85007; 85025; 85027; 85610; 85730; 87040; 87081; 87088; 93005; 93041; 93306; 96374

== ENCOUNTER 2020-02-28 12:14 | Emergency (ER) | payer MEDICARE ==
[~2020-02-28] VITALS: Ht 162 cm; Wt 44.0 kg
[~2020-02-28 12:14] MED LIST changes: +ACET325C7 PO; +AMLO-250 PO; +ASPI-1238 PO; +CARB100T6 PO; +HALO0.5T PO; +IBUP-1779 PO; +KETO5DRO14 OD; +KRIL500C PO; +MAGIC MOUTHWASH; +MAGN250T13 PO; +MIRT15TA PO; +MULT-1136 PO; +PANT40TA52 PO; +POLY17PO6 PO; +TAMO20TA2 PO
[2020-02-28 12:37] VITALS: BP 156/93
--- NOTE | 2020-02-28 12:48 | ED General ---
General Chief Complaint: Abdominal/GI Problems Stated Complaint: DIARRHEA Nursing Triage Note: PT HAD DIARRHEA ON TUESDAY. HAS BEEN EATING LOTS OF EXTRA SUGAR ;ATE;Y INCLUDING POWDERED DONUTS LATELY. Nursing Sepsis Screen: No Definite Risk Source of Information: Patient History of Present Illness Date Seen by Provider: Feb 28, 2020 Time Seen by Provider: 12:40 Initial Comments 74-year-old female presents from [facility] with vague concerns. Patient without any complaint, denies abdominal pain, nausea vomiting or loss of appetite. Nursing reports that she had an episode of diarrhea 4 days ago. Denies any cough or shortness of air, denies fever or chills. Patient is otherwise without any complaint. Allergies and Home Medications Allergies Coded Allergies: No Known Drug Allergies (Unverified , 10/06/18) Home Medications Acetaminophen 325 Mg Capsule, 650 MG PO Q4H PRN for PAIN-MILD (1-4) OR TEMPATURE, (Reported) Amlodipine Besylate 5 Mg Tablet, 5 MG PO DAILY Prescribed by: MONO PÉREZ on 01/07/20 1021 Aspirin 81 Mg Tablet.dr, 81 MG PO DAILY, (Reported) Carbamazepine 100 Mg Tab.chew, 100 MG PO 0800,1200,1700, (Reported) TAKES THREE TIMES DAILY Haloperidol 0.5 Mg Tablet, 0.5 MG PO DAILY Prescribed by: MONO PÉREZ on 01/07/20 1021 Ketorolac Tromethamine 5 Ml Drops, 1 DROPS OD QID, (Reported) Krill Oil 500 Mg Capsule, 500 MG PO DAILY, (Reported) Magnesium Oxide 250 Mg Tablet, 250 MG PO DAILY, (Reported) Mirtazapine 15 Mg Tablet, 15 MG PO HS, (Reported) Multivitamin 1 Each Tablet, 1 EACH PO DAILY, (Reported) Pantoprazole Sodium 40 Mg Tablet.dr, 40 MG PO DAILY Prescribed by: MONO PÉREZ on 01/07/20 1021 Polyethylene Glycol 3350 17 Gm Powd.pack, 17 GM PO DAILY PRN for CONSTIPATION- 2ND LINE, (Reported) Tamoxifen Citrate 20 Mg Tablet, 20 MG PO DAILY, (Reported) [Magic Mouthwash] , Q6H PRN for MOUTH PAIN, (Reported) TAKE 1 SIP THEN SWISH, HOLD AND SPITOUT Patient Home Medication List Home Medication List Reviewed: Yes Review of Systems Review of Systems Constitutional: No chills, No fever, No malaise, No weakness EENTM: no symptoms reported Respiratory: No cough, No short of breath Cardiovascular: No chest pain, No edema Gastrointestinal: No abdominal pain; diarrhea (few loose stools ); No nausea, No vomiting Musculoskeletal: no symptoms reported Skin: no symptoms reported Past Rwovhhm-Mgtewb-Wfzzni Hx Past Med/Social Hx: Reviewed Nursing Past Med/Soc Hx Patient Social History Alcohol Use: Denies Use Recreational Drug Use: No Smoking Status: Current Someday Smoker Type Used: Cigarettes 2nd Hand Smoke Exposure: Yes Recent Foreign Travel: No Contact w/Someone Who Travel: No Recent Infectious Disease Expo: No Recent Hopitalizations: No Physical Abuse: No Sexual Abuse: No Mistreated: No Fear: No Seasonal Allergies Seasonal Allergies: No Past Medical History Surgeries: No Respiratory: No Cardiac: Yes Hypertension Neurological: Yes Dementia Genitourinary: Yes UTI-Chronic Gastrointestinal: Yes Gastroesophageal Reflux Musculoskeletal: No Endocrine: No HEENT: No Cancer: Yes Breast Did You Recieve Any Treatments: Yes Psychosocial: No Integumentary: No Blood Disorders: No Physical Exam Vital Signs Vital Signs - First Documented 02/28/20 12:37 Temp 36.3 Pulse 86 Resp 18 B/P (MAP) 156/93 (114) Pulse Ox 94 O2 Delivery Room Air Capillary Refill : Less Than 3 Seconds Height, Weight, BMI Height: 5'6.00" Weight: 110lbs. 0oz. 49.046329vg; 16.00 BMI Method:Stated General Appearance: No Apparent Distress, WD/WN Respiratory: Chest Non Tender, Lungs Clear, Normal Breath Sounds Cardiovascular: Regular Rate, Rhythm, No Edema, Normal Peripheral Pulses Gastrointestinal: Normal Bowel Sounds, Non Tender, Soft Back: Normal Inspection, No CVA Tenderness Extremity: Normal Capillary Refill, Non Tender Neurologic/Psychiatric: Alert, No Motor/Sensory Deficits, Normal Mood/Affect Skin: Normal Color, Warm/Dry Progress/Results/Core Measures Suspected Sepsis Recent Fever Within 48 Hours: No Infection Criteria Present: None New/Unexplained Altered Menta: No Sepsis Screen: No Definite Risk SIRS Temperature: Pulse: 86 Respiratory Rate: 18 Blood Pressure 156 /93 Mean: 114 Results/Orders Lab Results Laboratory Tests Test 02/28/20 11:30 Range/Units Urine Color YELLOW Urine Clarity SLIGHTLY CLOUDY Urine pH 6.0 5-9 Urine Specific [place] 1.025 H 1.016-1.022 Urine Protein 2+ H NEGATIVE Urine Glucose (UA) NEGATIVE NEGATIVE Urine Ketones 1+ H NEGATIVE Urine Nitrite NEGATIVE NEGATIVE Urine Bilirubin 1+ H NEGATIVE Urine Urobilinogen 0.2 < = 1.0 MG/DL Urine Leukocyte Esterase TRACE H NEGATIVE Urine RBC (Auto) 3+ H NEGATIVE Urine RBC 50-100 H /HPF Urine WBC 25-50 H /HPF Urine Squamous Epithelial Cells 10-25 H /HPF Urine Crystals NONE /LPF Urine Bacteria FEW H /HPF Urine Casts NONE /LPF Urine Mucus NEGATIVE /LPF Urine Culture Indicated YES My Orders Orders - LIZZETH DAMON DO Urinalysis (02/28/20 12:42) Urine Culture (02/28/20 11:30) Vital Signs/I&O 02/28/20 12:37 Temp 36.3 Pulse 86 Resp 18 B/P (MAP) 156/93 (114) Pulse Ox 94 O2 Delivery Room Air Capillary Refill : Less Than 3 Seconds Blood Pressure Mean: 114 Departure Impression Primary Impression: Malaise Disposition: 01 HOME, SELF-CARE Condition: Stable Departure-Patient Inst. Decision time for Depature: 12:47 Referrals: DIXIE ODOM MD (PCP/Family) Primary Care Physician Patient Instructions: Diarrhea in Adolescents and Adults Add. Discharge Instructions: Follow up with Dr Odom in 1 week if not improving, sooner if worse. All discharge instructions reviewed with patient and/or family. Voiced understanding. LIZZETH DAMON DO Feb 28, 2020 12:48
[2020-02-28 12:55] LABS: BACTERIA,URINE FEW /HPF; BILIRUBIN,URINE 1+ (NEGATIVE); CLARITY,URINE SLIGHTLY CLOUDY; COLOR,URINE YELLOW; GLUCOSE, URINE (UA) NEGATIVE (NEGATIVE); KETONES,URINE 1+ (NEGATIVE); LEUKOCYTE ESTERASE ,URINE TRACE (NEGATIVE); NITRITE,URINE NEGATIVE (NEGATIVE); PROTEIN,URINE 2+ (NEGATIVE); RBC,URINE 50-100 /HPF; WBC,URINE 25-50 /HPF
== END 2020-02-28 13:08 | disposition home or self-care (01) ==
LOC: EDUNIT# 12:14 → ER FS 12:22
DX: R53.81 Other malaise (principal); I10 Essential (primary) hypertension; K21.9 Gastro-esophageal reflux disease without esophagitis; Z85.3 Personal history of malignant neoplasm of breast; F17.210 Nicotine dependence, cigarettes, uncomplicated; Z79.82 Long term (current) use of aspirin
CPT/HCPCS: 81000; 87088; 99282

== ENCOUNTER 2020-05-23 09:43 | Emergency (ER) | payer MEDICARE ==
[~2020-05-23] VITALS: Ht 163 cm; Wt 50.0 kg
[~2020-05-23 09:43] MED LIST changes: +MIRT-96 PO; -MIRT15TA PO; +VANC125C5 PO
[2020-05-23 10:07] LABS: BILIRUBIN,URINE NEGATIVE (NEGATIVE); CLARITY,URINE CLOUDY; COLOR,URINE YELLOW; GLUCOSE, URINE (UA) NEGATIVE (NEGATIVE); KETONES,URINE NEGATIVE (NEGATIVE); LEUKOCYTE ESTERASE ,URINE 1+ (NEGATIVE); NITRITE,URINE NEGATIVE (NEGATIVE); PH,URINE 6.5 (5-9); PROTEIN,URINE 1+ (NEGATIVE)
[2020-05-23 10:17] LABS: BACTERIA,URINE MODERATE /HPF; RBC,URINE TNTC /HPF; SQUAMOUS EPITHELIAL CELL,UR 0-2 /HPF
[2020-05-23 10:27] LABS: HEMOGLOBIN 12.8 g/dL (11.5-16.0)
[2020-05-23 10:29] LABS: BASOPHILS % (AUTO) 1 % (0-10); EOSINOPHILS # (AUTO) 0.1 10^3/uL (0.0-0.3); EOSINOPHILS % (AUTO) 1 % (0-10); HEMATOCRIT 41 % (35-52); LYMPHOCYTES # (AUTO) 1.1 10^3/uL (1.0-4.0); LYMPHOCYTES % (AUTO) 17 % (12-44); MEAN CORPUSCULAR HEMOGLOBIN 31 pg (25-34); MEAN CORPUSCULAR HGB CONC 32 g/dL (32-36); MEAN CORPUSCULAR VOLUME 98 fL (80-99); MEAN PLATELET VOLUME 10.3 fL (9.0-12.2); MONOCYTES # (AUTO) 0.4 10^3/uL (0.0-1.0); MONOCYTES % (AUTO) 7 % (0-12); NEUTROPHILS # (AUTO) 4.5 10^3/uL (1.8-7.8); NEUTROPHILS % (AUTO) 74 % (42-75); PLATELET COUNT 140 10^3/uL (130-400); WHITE BLOOD COUNT 6.1 10^3/uL (4.3-11.0)
[2020-05-23 10:37] LABS: ALBUMIN 3.8 GM/DL (3.2-4.5); CHLORIDE 106 MMOL/L (98-107); POTASSIUM 3.8 MMOL/L (3.6-5.0); SODIUM 143 MMOL/L (135-145)
[2020-05-23 10:38] LABS: CALCIUM 9.1 MG/DL (8.5-10.1)
[2020-05-23 10:39] LABS: GLUCOSE 97 MG/DL (70-105); TOTAL PROTEIN 7.1 GM/DL (6.4-8.2)
[2020-05-23 10:40] LABS: PROTHROMBIN TIME PATIENT 13.8 SEC (12.2-14.7)
[2020-05-23 10:41] LABS: BILIRUBIN,TOTAL 0.2 MG/DL (0.1-1.0); CARBON DIOXIDE 27 MMOL/L (21-32)
[2020-05-23 10:43] LABS: ALKALINE PHOSPHATASE 90 U/L (40-136); CREATININE SERUM 0.86 MG/DL (0.60-1.30); GFR ESTIMATED > 60
[2020-05-23 10:44] LABS: BUN/CREATININE RATIO 23
[2020-05-23 10:46] LABS: ALANINE AMINOTRANSFERASE 10 U/L (0-55)
--- NOTE | 2020-05-23 11:00 | NUR ---
CALLED SECRETARY TO [employer] AT [phone] LEFT MESSAGE INQUIRING ABOUT MEDICAL HISTORY OF PT.
--- NOTE | 2020-05-23 11:10 | NUR ---
PT RESTING EYES CLOSED IN BED. NO NEEDS OR COMPLAINTS AT THIS TIME.
[2020-05-23] MEDS ORDERED: LACTATED RINGERS 1,000 ML IV ONE (11:15)
[2020-05-23] MEDS ORDERED: cefTRIAXone FOR IV USE 1,000 MG in WATER (STERILE) FOR INJECTION 10 ML IV ONE (11:15)
[2020-05-23] MEDS ORDERED: NS 100 ML (IVPB) BAG IV ONE (11:15)
[2020-05-23] MEDS ORDERED: CATHETER FLUSH 10 ML SYR IV PRN (11:15)
[2020-05-23] MEDS ORDERED: IOHEXOL 350 MG/ML 100 ML (OMNIPAQUE 350) VIAL IV ONE (11:15)
[2020-05-23] MEDS ORDERED: HOLD METFORMIN - RECEIVED CONTRAST 20 ML VIAL IV SCH (11:15)
--- NOTE | 2020-05-23 11:15 | NUR ---
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 PROVIDED MUCH MEDICAL HISTORY POSSIBLE WITHOUT HAVING HER CHART WITH HER. [employer] IS THE ONLY PERSON THAT HAS THE INFORMATION AND IT IS BACK AT [facility].
--- NOTE | 2020-05-23 11:42 | Diagnostic Imaging Report ---
Portable erect AP chest at 1127 hours. INDICATION: Sepsis. FINDINGS: The borderline cardiomegaly and the tortuous descending thoracic aorta seen on the prior exam of 01/04/2020 are again evident and no different. The lungs remain generally clear. There is no sign of failure, pneumonia or pleural effusion. The mediastinum is not widened. The osseous structures are intact. IMPRESSION: There is no evidence for active disease. Dictated by: Dictated on workstation # [id number]
--- NOTE | 2020-05-23 12:29 | Diagnostic Imaging Report ---
PROCEDURE: CT abdomen and pelvis with contrast. TECHNIQUE: Multiple contiguous axial images were obtained through the abdomen and pelvis after administration of intravenous contrast. Auto Exposure Controls were utilized during the CT exam to meet ALARA standards for radiation dose reduction. All CT scans use one or more of the following dose optimizing techniques: automated exposure control, MA and/or KvP adjustment based on patient size and exam type or iterative reconstruction. INDICATION: Hematuria. Patient has a history of ovarian carcinoma. COMPARISON: Correlation is made with prior CT from 03/06/2020. FINDINGS: The lung bases are clear. The liver is unremarkable. No discrete liver mass is seen. Gallbladder appears to be surgically absent. Pancreas and spleen are unremarkable. No adrenal mass is identified. There are low attenuation lesions involving both kidneys, likely representing cysts. Upper abdominal aorta demonstrates some aneurysmal dilatation measuring up to 4.2 cm AP diameter. Patient appears to have aortoiliac graft present. Small and large bowel loops are normal caliber. There is no obstruction. There is no free fluid or fluid collection. There does appear to be significant thickening and probable mass involving the right aspect of the urinary bladder. This measures approximately 2.8 cm. No definite abdominal or pelvic lymphadenopathy is seen. Bony structures are nonacute. IMPRESSION: 1. Lobulated mass in the right aspect of the urinary bladder is suggestive of bladder neoplasm. Urologic consultation is recommended. 2. Suprarenal abdominal aortic aneurysm. 3. Bilateral low-attenuation lesions within the kidneys, most likely representing cysts. Dictated by: Dictated on workstation # [id number]
--- NOTE | 2020-05-23 12:45 | NUR ---
PT UP TO BEDSIDE COMMODE TO VOID. PT STILL UNABLE TO SIT HERSELF UP OR STAND UP WITHOUT FULL ASSISTANCE TO USE BEDSIDE COMMODE. UNABLE TO REMOVE HER DEPENDS OR PANTS TO SIT DOWN WITHOUT BECOMING UNSTEADY. NOTED A VARIOUS STAGE BRUISE ON HER RIGHT THIGH AREA POSSIBLY FROM PREVIOUS FALL. PT VOIDED WITH NO DIFFICULTIES.
[2020-05-23] MEDS ORDERED: amLODIPine 5 MG (NORVASC) TAB PO ONE (13:15)
--- NOTE | 2020-05-23 13:17 | ED GU-Female ---
General Chief Complaint: - Urinary Stated Complaint: URINATING BLOOD Nursing Triage Note: PT TO RM 6 VIA WC. SAIL FINISHER HAND STATES WHEN PT VOIDED THIS AM HER URINE IS DARKER THAN NORMAL AND APPEARED TO HAVE SOME BLOOD IN IT. STATES THE PT HAS RECURRENT CHRONIC UTI'S. STATES PT IS ALSO FEARFUL OF BEING ADMITTED TO HOSPITAL. OBSERVING THE PT I NOTED THAT SHE SEEMED FAIRLY WEAK. SAIL FINISHER HAND STATED THAT SHE IS TODAY BECAUSE HER ROUTINE WAS RUSHED THIS MORNING THAT SHE HAS NO ISSUES WITH WEAKNESS AT THIS TIME. PT JUST STATES SHE IS TIRED AND WANTS TO GO HOME TO SLEEP. Nursing Sepsis Screen: No Definite Risk Source: patient Exam Limitations: no limitations History of Present Illness Date Seen by Provider: May 23, 2020 Time Seen by Provider: 09:47 Initial Comments This 75-year-old woman is brought to the emergency room by her home improvement installer with concerns about hematuria and generalized weakness. She lives in a group assisted living center with 24-hour attendant care. Patient is normally able to ambulate independently with a walker to the bathroom and has still been able to do that this morning. However, she seems less steady on her feet and now is requiring some assistance for transfers. She has a history of hematuria in the past that persists now. She is not anticoagulated. Other than being tired she feels relatively well. She is afebrile. She is notably hypertensive. Her home improvement installer states this is not unusual for her in the healthcare setting because she gets nervous. Review of chart notes historically high blood pressure. She presently is treated with amlodipine 5 mg daily. Allergies and Home Medications Allergies Coded Allergies: No Known Drug Allergies (Unverified , 10/06/18) Home Medications Acetaminophen 325 Mg Capsule, 650 MG PO Q4H PRN for PAIN-MILD (1-4) OR TEMPATURE, (Reported) Amlodipine Besylate 5 Mg Tablet, 5 MG PO DAILY, (Reported) Amlodipine Besylate 10 Mg Tablet, 10 MG PO DAILY Prescribed by: HAN ROJO on 05/23/20 1323 Aspirin 81 Mg Tablet.dr, 81 MG PO DAILY, (Reported) Carbamazepine 100 Mg Tab.chew, 100 MG PO 0800,1200,1700, (Reported) TAKES THREE TIMES DAILY Cephalexin 500 Mg Tablet, 500 MG PO TID Prescribed by: HAN ROJO on 05/23/20 1323 Ketorolac Tromethamine 5 Ml Drops, 1 DROPS OD QID, (Reported) Krill Oil 500 Mg Capsule, 500 MG PO DAILY, (Reported) Magnesium Oxide 250 Mg Tablet, 250 MG PO DAILY, (Reported) Mirtazapine 15 Mg Tablet, 15 MG PO HS, (Reported) Multivitamin 1 Each Tablet, 1 EACH PO DAILY, (Reported) Pantoprazole Sodium 40 Mg Tablet.dr, 40 MG PO DAILY, (Reported) Polyethylene Glycol 3350 17 Gm Powd.pack, 17 GM PO DAILY PRN for CONSTIPATION- 2ND LINE, (Reported) Tamoxifen Citrate 20 Mg Tablet, 20 MG PO DAILY, (Reported) Vancomycin HCl 125 Mg Capsule, 125 MG PO QID Prescribed by: MONO PÉREZ on 03/10/20 0954 [Magic Mouthwash] , Q6H PRN for MOUTH PAIN, (Reported) TAKE 1 SIP THEN SWISH, HOLD AND SPITOUT Patient Home Medication List Home Medication List Reviewed: Yes Review of Systems Review of Systems Constitutional: see HPI EENTM: no symptoms reported Respiratory: no symptoms reported Cardiovascular: no symptoms reported Gastrointestinal: no symptoms reported Genitourinary: see HPI : No Musculoskeletal: no symptoms reported Skin: no symptoms reported Psychiatric/Neurological: No Symptoms Reported Endocrine: No Symptoms Reported Hematologic/Lymphatic: No Symptoms Reported Past Ehwzbca-Yhvybt-Jbockg Hx Past Med/Social Hx: Reviewed Nursing Past Med/Soc Hx Patient Social History Alcohol Use: Denies Use Smoking Status: Current Everyday Smoker Type Used: Cigarettes 2nd Hand Smoke Exposure: Yes Recent Infectious Disease Expo: No Recent Hopitalizations: Yes Immunizations Up To Date Tetanus Booster (TDap): Unknown Date of Influenza Vaccine: Feb 21, 2020 Seasonal Allergies Seasonal Allergies: No Past Medical History Surgeries: Yes Hysterectomy, Lumpectomy Respiratory: No Currently Using CPAP: No Currently Using BIPAP: No Cardiac: Yes Hypertension Neurological: Yes Dementia 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 Physical Exam Vital Signs Vital Signs - First Documented 05/23/20 09:50 Temp 36.4 Pulse 56 Resp 18 B/P (MAP) 138/113 (121) Pulse Ox 98 O2 Delivery Room Air Capillary Refill : Less Than 3 Seconds Height, Weight, BMI Height: 5'6.00" Weight: 110lbs. 0oz. [id number]; 18.00 BMI Method:Stated General Appearance: WD/WN, no apparent distress, thin, other (Generalized weakness) HEENT: PERRL/EOMI, normal ENT inspection Neck: normal inspection Cardiovascular: regular rate, rhythm, no edema, no murmur Respiratory: lungs clear, normal breath sounds, no respiratory distress Gastrointestinal: normal bowel sounds, non tender, soft Extremities: normal inspection, no pedal edema Neurologic/Psychiatric: community engagement leader II-XII nml as tested, no motor/sensory deficits, alert, normal mood/affect, other (Confused at baseline due to dementia) Skin: normal color, warm/dry Focused Exam Lactate Level 05/23/20 10:42: Lactic Acid Level 2.72*H 05/23/20 12:52: Lactic Acid Level 2.45*H Lactic Acid Level Progress/Results/Core Measures Suspected Sepsis Recent Fever Within 48 Hours: No Infection Criteria Present: None New/Unexplained Altered Menta: No Sepsis Screen: No Definite Risk SIRS Temperature: Pulse: 56 Respiratory Rate: 18 Laboratory Tests 05/23/20 10:08: White Blood Count 6.1 Blood Pressure 138 /113 Mean: 121 05/23/20 10:42: Lactic Acid Level 2.72*H 05/23/20 12:52: Lactic Acid Level 2.45*H Laboratory Tests 05/23/20 10:08: Creatinine 0.86, INR Comment 1.0, Platelet Count 140, Total Bilirubin 0.2 Results/Orders Lab Results Laboratory Tests Test 05/23/20 09:50 05/23/20 10:08 05/23/20 10:42 05/23/20 12:52 Range/Units Urine Color YELLOW Urine Clarity CLOUDY Urine pH 6.5 5-9 Urine Specific [place] 1.015 L 1.016-1.022 Urine Protein 1+ H NEGATIVE Urine Glucose (UA) NEGATIVE NEGATIVE Urine Ketones NEGATIVE NEGATIVE Urine Nitrite NEGATIVE NEGATIVE Urine Bilirubin NEGATIVE NEGATIVE Urine Urobilinogen 0.2 < = 1.0 MG/DL Urine Leukocyte Esterase 1+ H NEGATIVE Urine RBC (Auto) 3+ H NEGATIVE Urine RBC TNTC H /HPF Urine WBC 10-25 H /HPF Urine Squamous Epithelial Cells 0-2 /HPF Urine Renal Epithelial Cells 5-10 /HPF Urine Crystals NONE /LPF Urine Bacteria MODERATE H /HPF Urine Casts NONE /LPF Urine Mucus NEGATIVE /LPF Urine Culture Indicated YES White Blood Count 6.1 4.3-11.0 10^3/uL Red Blood Count 4.14 3.80-5.11 10^6/uL Hemoglobin 12.8 11.5-16.0 g/dL Hematocrit 41 35-52 % Mean Corpuscular Volume 98 80-99 fL Mean Corpuscular Hemoglobin 31 25-34 pg Mean Corpuscular Hemoglobin Concent 32 32-36 g/dL Red Cell Distribution Width 15.3 H 10.0-14.5 % Platelet Count 140 130-400 10^3/uL Mean Platelet Volume 10.3 9.0-12.2 fL Immature Granulocyte % (Auto) 0 % Neutrophils (%) (Auto) 74 42-75 % Lymphocytes (%) (Auto) 17 12-44 % Monocytes (%) (Auto) 7 0-12 % Eosinophils (%) (Auto) 1 0-10 % Basophils (%) (Auto) 1 0-10 % Neutrophils # (Auto) 4.5 1.8-7.8 10^3/uL Lymphocytes # (Auto) 1.1 1.0-4.0 10^3/uL Monocytes # (Auto) 0.4 0.0-1.0 10^3/uL Eosinophils # (Auto) 0.1 0.0-0.3 10^3/uL Basophils # (Auto) 0.0 0.0-0.1 10^3/uL Immature Granulocyte # (Auto) 0.0 0.0-0.1 10^3/uL Prothrombin Time 13.8 12.2-14.7 SEC INR Comment 1.0 0.8-1.4 Activated Partial Thromboplast Time 27 24-35 SEC Sodium Level 143 135-145 MMOL/L Potassium Level 3.8 3.6-5.0 MMOL/L Chloride Level 106 98-107 MMOL/L Carbon Dioxide Level 27 21-32 MMOL/L Anion Gap 10 5-14 MMOL/L Blood Urea Nitrogen 20 H 7-18 MG/DL Creatinine 0.86 0.60-1.30 MG/DL Estimat Glomerular Filtration Rate > 60 BUN/Creatinine Ratio 23 Glucose Level 97 70-105 MG/DL Calcium Level 9.1 8.5-10.1 MG/DL Corrected Calcium 9.3 8.5-10.1 MG/DL Total Bilirubin 0.2 0.1-1.0 MG/DL Aspartate Amino Transf (AST/SGOT) 22 5-34 U/L Alanine Aminotransferase (ALT/SGPT) 10 0-55 U/L Alkaline Phosphatase 90 40-136 U/L C-Reactive Protein High Sensitivity 1.37 H 0.00-0.50 MG/DL Total Protein 7.1 6.4-8.2 GM/DL Albumin 3.8 3.2-4.5 GM/DL Thyroid Stimulating Hormone (TSH) 1.56 0.35-4.94 UIU/ML Free Thyroxine 0.84 0.70-1.48 NG/DL Lactic Acid Level 2.72 *H 2.45 *H 0.50-2.00 MMOL/L My Orders Orders - HAN GALLOWAY MD Ua Culture If Indicated (05/23/20 09:47) Cbc With Automated Diff (05/23/20 10:14) Comprehensive Metabolic Panel (05/23/20 10:14) Hs C Reactive Protein (05/23/20 10:14) Protime With Inr (05/23/20 10:14) Partial Thromboplastin Time (05/23/20 10:14) Ed Iv/Invasive Line Start (05/23/20 10:14) Urine Culture (05/23/20 09:50) Blood Culture (05/23/20 10:19) Sputum Culture (05/23/20 10:19) Chest 1 View, Ap/Pa Only (05/23/20 10:19) Vital Signs Adult Sepsis Patie Q15M (05/23/20 10:19) O2 (05/23/20 10:19) Remove Rings In Anticipation O (05/23/20 10:19) Lactic Acid Analyzer (05/23/20 10:19) Ceftriaxone For Iv Use (Rocephin For I (05/23/20 11:15) Lactated Ringers (Lr 1000 Ml Iv Solution (05/23/20 11:15) Ct Abdomen/Pelvis W (05/23/20 11:09) Iohexol Injection (Omnipaque 350 Mg/Ml 1 (05/23/20 11:15) Received Contrast (Hold Metformin- Contr (05/23/20 11:15) Sodium Chloride Flush (Catheter Flush Sy (05/23/20 11:15) Ns (Ivpb) (Sodium Chloride 0.9% Ivpb Bag (05/23/20 11:15) Amlodipine Tablet (Norvasc Tablet) (05/23/20 13:15) Thyroid Stimulating Hormone (05/23/20 13:17) Free T4 (Free Thyroxine) (05/23/20 13:17) Medications Given in ED Current Medications Medications Dose Ordered Sig/Uyen Route Start Time Stop Time Status Last Admin Dose Admin Amlodipine Besylate 5 mg ONCE ONCE PO 05/23/20 13:15 05/23/20 13:16 DC 05/23/20 13:27 5 MG Ceftriaxone Sodium 1000 mg/ Sterile Water 10 ml @ 200 mls/hr ONCE ONCE IV 05/23/20 11:15 05/23/20 11:17 DC 05/23/20 11:28 200 MLS/HR Iohexol 100 ml ONCE ONCE IV 05/23/20 11:15 05/23/20 11:16 DC 05/23/20 12:11 68 ML Lactated Ringer's 1,000 ml @ 0 mls/hr Q0M ONCE IV 05/23/20 11:15 05/23/20 11:16 DC 05/23/20 11:36 999 MLS/HR Sodium Chloride 10 ml NEEDED PRN IV 05/23/20 11:15 05/23/20 15:58 DC 05/23/20 12:11 10 ML Sodium Chloride 100 ml ONCE ONCE IV 05/23/20 11:15 05/23/20 11:16 DC 05/23/20 12:11 80 ML Vital Signs/I&O 05/23/20 05/23/20 09:50 13:56 Temp 36.4 Pulse 56 65 Resp 18 14 B/P (MAP) 138/113 (121) 216/110 Pulse Ox 98 100 O2 Delivery Room Air Capillary Refill : Less Than 3 Seconds Blood Pressure Mean: 121 Progress Note : Progress Note Patient was found to have hematuria. This is persistent when compared with prior urinalysis. There is also some suggestion of infection. She was treated with Rocephin. Lactic acid was elevated which was felt to be most likely from hydration status. At the time of repeat lactic acid she had received 500 mL of IV fluids which did improve the lactic acid. I discussed the home situation with her caregiver Naty. She reports there is 24-hour attendant care in the home and they can help with transfers. CT of the abdomen and pelvis was obtained to evaluate the urogenital system. There appears to be a mass in the right bladder wall. This needs to be assessed by a urologist, possibly with endoscopy. Diagnostic Imaging Diagonstic Imaging: Xray Plain Films/CT/US/NM/MRI: chest Comments NAME: MIRELA BELTRAN [facility] REC#: [id number] PT STATUS: REG ER : 1945 PHYSICIAN: HAN GALLOWAY MD ADMIT DATE: 05/23/20/ER Signed Date of Exam:05/23/20 CHEST 1 VIEW, AP/PA ONLY Portable erect AP chest at 1127 hours. INDICATION: Sepsis. FINDINGS: The borderline cardiomegaly and the tortuous descending thoracic aorta seen on the prior exam of 01/04/2020 are again evident and no different. The lungs remain generally clear. There is no sign of failure, pneumonia or pleural effusion. The mediastinum is not widened. The osseous structures are intact. IMPRESSION: There is no evidence for active disease. Dictated by: Dictated on workstation # [id number] Dict: 05/23/20 1138 Trans: 05/23/20 1537 [id number] Interpreted by: JOHN BUTLER MD Electronically signed by: JOHN BUTLER MD 05/23/20 1537 Reviewed: Reviewed by Me Diagonstic Imaging: CT Plain Films/CT/US/NM/MRI: abdomen, pelvis Comments CT abdomen pelvis viewed by me and report reviewed. See report below: NAME: MIRELA BELTRAN [facility] REC#: [id number] PT STATUS: REG ER : 1945 PHYSICIAN: HAN GALLOWAY MD ADMIT DATE: 05/23/20/ER Signed Date of Exam:05/23/20 CT ABDOMEN/PELVIS W PROCEDURE: CT abdomen and pelvis with contrast. TECHNIQUE: Multiple contiguous axial images were obtained through the abdomen and pelvis after administration of intravenous contrast. Auto Exposure Controls were utilized during the CT exam to meet ALARA standards for radiation dose reduction. All CT scans use one or more of the following dose optimizing techniques: automated exposure control, MA and/or KvP adjustment based on patient size and exam type or iterative reconstruction. INDICATION: Hematuria. Patient has a history of ovarian carcinoma. COMPARISON: Correlation is made with prior CT from 03/06/2020. FINDINGS: The lung bases are clear. The liver is unremarkable. No discrete liver mass is seen. Gallbladder appears to be surgically absent. Pancreas and spleen are unremarkable. No adrenal mass is identified. There are low attenuation lesions involving both kidneys, likely representing cysts. Upper abdominal aorta demonstrates some aneurysmal dilatation measuring up to 4.2 cm AP diameter. Patient appears to have aortoiliac graft present. Small and large bowel loops are normal caliber. There is no obstruction. There is no free fluid or fluid collection. There does appear to be significant thickening and probable mass involving the right aspect of the urinary bladder. This measures approximately 2.8 cm. No definite abdominal or pelvic lymphadenopathy is seen. Bony structures are nonacute. IMPRESSION: 1. Lobulated mass in the right aspect of the urinary bladder is suggestive of bladder neoplasm. Urologic consultation is recommended. 2. Suprarenal abdominal aortic aneurysm. 3. Bilateral low-attenuation lesions within the kidneys, most likely representing cysts. Dictated by: Dictated on workstation # [id number] Dict: 05/23/20 1220 Trans: 05/23/20 1535 [facility] [id number] Interpreted by: LADONNA MOSHER MD Electronically signed by: LADONNA MOSHER MD 05/23/20 1535 Departure Impression Primary Impression: Urinary tract infection Qualified Codes: N39.0 - Urinary tract infection, site not specified; R31.9 - Hematuria, unspecified Additional Impressions: Hematuria Qualified Codes: R31.9 - Hematuria, unspecified Bladder mass Disposition: 01 HOME, SELF-CARE Condition: Improved Departure-Patient Inst. Decision time for Depature: 13:18 Referrals: DIXIE DIETZ MD (PCP/Family) Primary Care Physician DARYL MOE MD Patient Instructions: Bladder Cancer, Blood in the Urine (Hematuria), Adult (DC) Add. Discharge Instructions: Drink plenty of clear liquids to stay well-hydrated. Complete your antibiotic as prescribed. Increase amlodipine to 10 mg daily for better control of blood pressure. Also review urine culture results with your doctor. An additional 5 mg of amlodipine was given in the ER so the increased dose can be started tomorrow morning. Follow-up with your primary care provider on Tuesday to have your blood pressure checked again. See a urologist as soon as possible for further evaluation of the bladder mass. This mass is of uncertain character but is suspicious for possible cancer. Referral to urologist and probable cystoscopy performed by a urologist as the next step in further evaluation. Call with questions or concerns. Return to the emergency room with worsening symptoms. All discharge instructions reviewed with patient and/or family. Voiced understanding. Scripts Cephalexin (Cephalexin) 500 Mg Tablet 500 MG PO TID, #20 TAB Prov: HAN GALLOWAY MD 05/23/20 Amlodipine Besylate (Amlodipine Besylate) 10 Mg Tablet 10 MG PO DAILY, #30 TAB Prov: HAN GALLOWAY MD 05/23/20 Copy Copies To 1: DARYL MOE MD Copies To 2: DIXIE DIETZ MD, JOSHUA T MD May 23, 2020 13:17
[2020-05-23] MEDS ORDERED: AMLO-251 PO (13:23)
[2020-05-23] MEDS ORDERED: CEPH500T PO (13:23)
--- NOTE | 2020-05-23 13:45 | NUR ---
PT UP TO BEDSIDE COMMODE TO VOID. PT STILL UNABLE TO PULL HERSELF UP WITHOUT FULL ASSISTANCE OR UNABLE TO REMOVE HER DEPENDS OR PANTS WITHOUT FULL ASSIST. PT STILL UNSTEADY ON HER FEET. ASSISTED TO BEDSIDE COMMODE TO VOID. VOIDED WITHOUT DIFFICULTIES. ASSISTED PT WITH UNDERGARMETS AND PANTS AND HELPED BACK INTO BED. RAILS UP X2, LOWEST POSITION AND CALL LIGHT IN REACH
--- NOTE | 2020-05-23 13:50 | NUR ---
NOTIFIED DR. GALLOWAY ABOUT PT INSTABILITY. HE WILL REVIEW CONCERNS WITH CAREGIVER WELL TEST/LAB RESULTS.
[2020-05-23 13:51] LABS: FREE T4 (FREE THYROXINE) 0.84 NG/DL (0.70-1.48)
[2020-05-23 13:56] VITALS: BP 216/110
== END 2020-05-23 13:56 | disposition home or self-care (01) ==
LOC: EDUNIT# 09:43 → ER 09:45
DX: N39.0 Urinary tract infection, site not specified (principal); R31.9 Hematuria, unspecified; N32.89 Other specified disorders of bladder; I10 Essential (primary) hypertension; K21.9 Gastro-esophageal reflux disease without esophagitis; F17.210 Nicotine dependence, cigarettes, uncomplicated; Z85.3 Personal history of malignant neoplasm of breast; Z79.82 Long term (current) use of aspirin
CPT/HCPCS: 36415; 71045; 74177; 80053; 81000; 83605; 84439; 84443; 85025; 85610; 85730; 86141; 87040; 87077; 87088; 87186

== ENCOUNTER 2020-06-04 05:58 | Outpatient (RCR) | payer MEDICARE ==
[~2020-06-04] VITALS: Ht 162.6 cm; Wt 50.0 kg
[~2020-06-04 05:58] MED LIST changes: +AMLO-251 PO; +CEPH500T PO
== END 2020-06-05 14:36 | disposition home or self-care (01) ==
LOC: PREOP 05:58
PROVIDERS: ATTEND Urology
DX: Z01.818 Encounter for other preprocedural examination (principal)

== ENCOUNTER → 2020-06-06 | Outpatient (CLI) | payer MEDICARE ==
[~2020-06-06] MED LIST changes: +NITR-65 PO; +PHEN-640 PO
== END ==
LOC: LAB FS 10:30
PROVIDERS: ATTEND Urology
DX: Z01.812 Encounter for preprocedural laboratory examination (principal); D49.4 Neoplasm of unspecified behavior of bladder; Z20.822 Contact with and (suspected) exposure to COVID-19
CPT/HCPCS: 87635

== ENCOUNTER 2020-06-09 06:30 | Day surgery (SDC) | payer MEDICARE ==
[2020-06-09] VITALS (11 sets, daily range): BP systolic 114–159; BP diastolic 62–83
[~2020-06-09] VITALS: Ht 162.6 cm; Wt 50.0 kg
[~2020-06-09 06:30] MED LIST changes: -NITR-65 PO; -PHEN-640 PO
[2020-06-09] MEDS ORDERED: cefTRIAXone FOR IV USE 1,000 MG in WATER (STERILE) FOR INJECTION 10 ML IV ONE (06:45)
[2020-06-09] MEDS ORDERED: proPOfol 200 MG/20 ML (DIPRIVAN) VIAL IV ONE (07:05)
[2020-06-09] MEDS ORDERED: fentaNYL INJECTION 100 MCG/2 ML AMP ONE (07:05)
[2020-06-09] MEDS ORDERED: NEOSTIGMINE 3 MG/3 ML VIAL ONE (07:05)
[2020-06-09] MEDS ORDERED: ONDANSETRON 4 MG/2 ML (SDV) Z0FRAN ONE ×2 (07:05→07:07)
[2020-06-09] MEDS ORDERED: ROCURONIUM 10 MG/ML 5 ML SYRINGE IV ONE (07:05)
[2020-06-09] MEDS ORDERED: LIDOCAINE PF 2% 5 ML (XYLOCAINE) VIAL ONE (07:05)
[2020-06-09] MEDS ORDERED: GLYCOPYRROLATE 0.2 MG/ML (ROBINUL) 2 ML VIAL ONE (07:05)
[2020-06-09] MEDS ORDERED: SEVOFLURANE (ULTANE) 15 ML INHAL SOLN ONE (07:05)
[2020-06-09] MEDS ORDERED: LACTATED RINGERS 1,000 ML IV PRN (07:15)
--- NOTE | 2020-06-09 07:53 | Progress Note-Pre Operative ---
Pre-Operative Progress Note H&P Reviewed The H&P was reviewed, patient examined and no changes noted. Date Seen by Provider: Jun 09, 2020 Time Seen by Provider: 07:53 Date H&P Reviewed: Jun 09, 2020 Time H&P Reviewed: 07:53 Pre-Operative Diagnosis: GROSS HEMATURIA AND BLADDER TUMOR DARYL MOE MD Jun 09, 2020 07:53
--- NOTE | 2020-06-09 07:54 | Progress Note-Post Operative ---
Post-Operative Progess Note Surgeon (s)/Insulation Worker Interior Surface (s) Surgeon DARYL MOE MD Insulation Worker Interior Surface: NONE Pre-Operative Diagnosis GROSS HEMATURIA AND BLADDER TUMOR Post-Operative Diagnosis SAME (LARGE) Procedure & Operative Findings Date of Procedure 06/09/20 Procedure Performed/Findings TURBT Anesthesia Type GENERAL Estimated Blood Loss Estimated blood loss (mL): LESS THAN 50CC Specimens/Packing Specimens Removed BLADDER TUMOR AND BASE Packing: MONTEZ TO DD DARYL MOE MD Jun 09, 2020 07:54
--- NOTE | 2020-06-09 07:57 | Discharge Inst-Urology ---
Discharge Inst-Urology Reconcile Patient Problems Problems Reviewed?: Yes Final Diagnosis GROSS HEMATURIA AND LARGE BLADDER TUMOR Patient Instructions/Follow Up Plan/Assessment/Instructions Please make appointment to been seen in office in 2 weeks. Discharge with long catheter and secure it with long lang and tapes Stay off ASA Increase oral fluids for 48 hours and then as needed. Diet and Activity as tolerated. If questions or concerns contact your physician Or seek help at emergency department. DARYL MOE MD Jun 09, 2020 07:56
[2020-06-09] MEDS ORDERED: ONDANSETRON 4 MG/2 ML (SDV) Z0FRAN IVP PRN (08:00)
[2020-06-09] MEDS ORDERED: morphine INJ 10 MG/ML 1ML (SYR OR VIAL) IVP ONE (08:00)
[2020-06-09] MEDS ORDERED: PHEN-640 PO (08:34)
[2020-06-09] MEDS ORDERED: NITR-65 PO (08:34)
--- NOTE | 2020-06-09 11:48 | OPERATIVE REPORT ---
DATE OF SERVICE: 06/09/2020 PREOPERATIVE DIAGNOSES: Gross hematuria and bladder tumor. POSTOPERATIVE DIAGNOSES: Gross hematuria and bladder tumor "large." OPERATION PERFORMED: Transurethral resection of bladder tumor, large. SURGEON: Braulio Moe MD ANESTHESIA: General. COMPLICATIONS: None. DESCRIPTION OF PROCEDURE: Under satisfactory general anesthesia, the patient in lithotomy position, genitalia were prepped and draped in the usual sterile fashion. Cystoscope was introduced under vision, visualized with a single large bladder tumor above and lateral to the right ureteral orifice. It was completely resected with several areas of the base for staging. Bleeders were cauterized and hemostasis was complete. Ureteric orifice was intact with clear efflux. I removed the resectoscope. I decided to leave a catheter in for 3-4 days because of the size of the tumor and the depth of resection. Job ID: [id number] DocumentID: [id number] Dictated Date: 06/09/2020 08:33:09 Computer Education Teacher Date: 06/09/2020 11:47:49 Dictated By: BRAULIO MOE MD
--- NOTE | 2020-06-11 07:16 | Anesthesia-General Post-Op ---
General Patient Condition Mental Status/LOC: Same as Preop Cardiovascular: Satisfactory Nausea/Vomiting: Absent Respiratory: Satisfactory Pain: Controlled Complications: Absent Post Op Complications Complications None Follow Up Care/Instructions Patient Instructions None needed. Anesthesia/Patient Condition Patient Condition Patient was seen after the procedure prior to her discharge to home and she was doing well, no complaints, stable vital signs, no apparent adverse anesthesia problems. BETSY PEREZ DO Jun 11, 2020 07:16
== END 2020-06-09 11:00 | disposition home or self-care (01) ==
LOC: SDC 06:30
PROVIDERS: ATTEND Urology
DX: C67.9 Malignant neoplasm of bladder, unspecified (principal); R31.0 Gross hematuria; I10 Essential (primary) hypertension; J44.9 Chronic obstructive pulmonary disease, unspecified; K21.9 Gastro-esophageal reflux disease without esophagitis; Z79.899 Other long term (current) drug therapy; Z90.710 Acquired absence of both cervix and uterus
CPT/HCPCS: 87081

== ENCOUNTER 2020-11-18 12:57 | Emergency (ER) | payer MEDICARE ==
[~2020-11-18] VITALS: Ht 165.1 cm; Wt 45.0 kg
[~2020-11-18 12:57] MED LIST changes: +NITR-65 PO; +PHEN-640 PO
--- NOTE | 2020-11-18 13:55 | ED Fall/Injury ---
General Chief Complaint: Trauma-Non Activation Stated Complaint: FALL; LT SIDE PAIN; DIZZINESS Nursing Triage Note: see triage Source: patient Exam Limitations: no limitations History of Present Illness Date Seen by Provider: Nov 18, 2020 Time Seen by Provider: 13:14 Initial Comments Here with initial report of near syncope but later turned out to be that she got tangled up in her walker and fell. Complains of mild headache but no other pain. Head pain is posterior left side. Site of bleeding. Answers questions but is only oriented to self. This is apparently her baseline. She comes from assisted facility. Occurred: just prior to arrival (Within the last hour) Severity: mild Injuries/Pain Location: head Context: tripped Loss of Consciousness: no loss of consciousness Modifying Factors: Improves With Rest Associated Symptoms (Fall): No Chest Pain; Confusion (Baseline per prison report); No Nausea/Vomiting, No Neck Pain Allergies and Home Medications Allergies Coded Allergies: Sulfa (Sulfonamide Antibiotics) (Verified Allergy, Unknown, 11/18/20) Home Medications Acetaminophen 325 Mg Capsule, 650 MG PO Q4H PRN for PAIN-MILD (1-4) OR TEMPATURE, (Reported) Amlodipine Besylate 5 Mg Tablet, 10 MG PO DAILY, (Reported) Carbamazepine 100 Mg Tab.chew, 100 MG PO 0800,1200,1700, (Reported) TAKES THREE TIMES DAILY Ketorolac Tromethamine 5 Ml Drops, 1 DROPS OD QID, (Reported) Krill Oil 500 Mg Capsule, 500 MG PO DAILY, (Reported) Magnesium Oxide 250 Mg Tablet, 250 MG PO DAILY, (Reported) Mirtazapine 15 Mg Tablet, 15 MG PO HS, (Reported) Multivitamin 1 Each Tablet, 1 EACH PO DAILY, (Reported) Nitrofurantoin Monohyd/M-Cryst 100 Mg Capsule, 1 TAB PO BID WITH MEALS Prescribed by: STACIA ARIAS on 06/09/20 0834 Pantoprazole Sodium 40 Mg Tablet.dr, 40 MG PO DAILY, (Reported) Phenazopyridine HCl 200 Mg Tablet, 1 TAB PO TID Prescribed by: STACIA ARIAS on 06/09/20833 Polyethylene Glycol 3350 17 Gm Powd.pack, 17 GM PO DAILY PRN for CONSTIPATION- 2ND LINE, (Reported) Tamoxifen Citrate 20 Mg Tablet, 20 MG PO DAILY, (Reported) [Magic Mouthwash] , Q6H PRN for MOUTH PAIN, (Reported) TAKE 1 SIP THEN SWISH, HOLD AND SPITOUT Patient Home Medication List Home Medication List Reviewed: Yes Review of Systems Review of Systems Constitutional: no symptoms reported Eyes: No Symptoms Reported Respiratory: No cough, No short of breath Cardiovascular: No chest pain Musculoskeletal: No back pain, No neck pain Review of systems limited due to underlying dementia. Patient does not report any significant complaint on direct questioning other than posterior left-sided head pain. 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 Physical Exam Vital Signs Vital Signs - First Documented 11/18/20 13:29 Temp 36.3 Pulse 75 Resp 18 B/P (MAP) 167/85 (112) Pulse Ox 97 O2 Delivery Room Air Capillary Refill : Less Than 3 Seconds Height, Weight, BMI Height: 5'6.00" Weight: 110lbs. 0oz. 49.677136gc; 16.00 BMI Method:Stated General Appearance: no apparent distress, thin HEENT: PERRL/EOMI, pharynx normal Neck: non-tender, full range of motion, supple, normal inspection Cardiovascular: regular rate, rhythm, no murmur Respiratory: lungs clear, normal breath sounds Gastrointestinal: non tender, soft Back: normal inspection, no CVA tenderness Extremities: non-tender, normal inspection, no pedal edema, no calf tenderness, pelvis stable Neurologic/Psychiatric: alert, normal mood/affect Skin: normal color, warm/dry, other (Small goose egg posterior scalp left side) Xander Coma Score Best Eye Response: (4) Open Spontaneously Best Verbal Response: (4) Confused Conversation (Baseline) Best Motor Response: (6) Obeys Commands Progress/Results/Core Measures Results/Orders My Orders Orders - SCOTTIE CANTRELL MD Ct Head/Cervical Spine Wo (11/18/20 13:27) Ekg Tracing (11/18/20 13:32) Ct Chest Wo (11/18/20 14:56) Vital Signs/I&O 11/18/20 13:29 Temp 36.3 Pulse 75 Resp 18 B/P (MAP) 167/85 (112) Pulse Ox 97 O2 Delivery Room Air Blood Pressure Mean: 112 Progress Progress Note : Progress Note Seen and evaluated. CT head and neck ordered. EKG ordered and reviewed due to initial complaint of possible syncope. This seems to be more related to the fall. Nonconcerning EKG. Monitor patient. 1457: CT head and C-spine results noted. CT chest without contrast ordered due to radiology recommendation. Monitor patient. 1556: CT results from chest noted. Probable thrombosed aneurysm. Nonemergent work-up as indicated. Patient would not be a surgical candidate given her advanced dementia. I will send a copy of the chart to her primary care physician. Discharged back to nursing care facility with return precautions. Report given to care facility. I did try to reach patient's power of comb setter, Ada Alcantara at [phone]. I left message to return call. No return call at time of discharge. Initial ECG Impression Date: Nov 18, 2020 Initial ECG Impression Time: 13:27 Initial ECG Rate: 58 Initial ECG Rhythm: Normal Sinus Comment Sinus rhythm with PAC. Left axis deviation. Left anterior fascicular block. No evidence of ST elevation ND. Similar to previous of 01/02/2020. Interpreted by me. Diagnostic Imaging Diagonstic Imaging: CT Plain Films/CT/US/NM/MRI: c-spine, head Comments [facility], [place] NAME: MIRELA BELTRAN [facility] REC#: [id number] PT STATUS: REG ER : 1945 PHYSICIAN: SCOTTIE CANTRELL MD ADMIT DATE: 11/18/20/ER FS Draft Date of Exam:11/18/20 CT HEAD/CERVICAL SPINE WO PROCEDURE: CT head and CT cervical spine without contrast. TECHNIQUE: Multiple contiguous axial images were obtained through the brain and cervical spine without the use of intravenous contrast. Sagittal and coronal reformations through the cervical spine were then performed. Auto Exposure Controls were utilized during the CT exam to meet ALARA standards for radiation dose reduction. INDICATION: Trauma, fall with injury to head and cervical spine. COMPARISON: None available. FINDINGS: Head: No intracranial hyperdense hemorrhage or space-occupying mass. No hydrocephalus or midline shift. Global atrophy is present with periventricular white matter hypoattenuation most commonly seen with chronic microvascular ischemic disease. No acute skull fracture. Paranasal sinuses and mastoid air cells are clear. Cervical spine: No acute fracture or traumatic malalignment in the cervical spine. Grade 1 anterolisthesis of C7 on T1 is due to severe facet osteoarthritis. Diffuse degenerative disc disease is present throughout the cervical spine. However, there are no sites of high-grade spinal stenosis. Severe bilateral neuroforaminal narrowing at C7-T1 due to the anterolisthesis. Partially imaged mass in the left lung apex. IMPRESSION: 1. No acute intracranial hemorrhage or skull fracture. 2. No acute fracture or traumatic malalignment in the cervical spine. 3. Partially imaged mass in the left upper lobe of the lung. Recommend CT chest without contrast for further characterization. Dictated on workstation # [id number] Dict: 11/18/20 1413 Trans: 11/18/20 1447 [facility] [id number] Interpreted by: AVERY CABRERA MD Electronically signed by: Diagonstic Imaging: CT Plain Films/CT/US/NM/MRI: chest Comments [facility], [place] NAME: MIRELA BELTRAN [facility] REC#: [id number] PT STATUS: REG ER : 1945 PHYSICIAN: SCOTTIE CANTRELL MD ADMIT DATE: 11/18/20/ER FS Draft Date of Exam:11/18/20 CT CHEST WO EXAMINATION: CT chest wo. TECHNIQUE: Multiple contiguous axial images were obtained through the chest without the use of intravenous contrast. All CT scans use one or more of the following dose optimizing techniques: automated exposure control, MA and/or KvP adjustment based on a patient size and exam type, or iterative reconstruction. INDICATION: Mass seen on CT neck from earlier same day. COMPARISON: Chest radiograph from 06/12/2020. FINDINGS: Lungs and airway: No endoluminal nodule within the trachea. Severe centrilobular emphysema is present. No pulmonary mass or suspicious nodule. Pleura: Trace bilateral pleural effusions. Heart and mediastinum: Thyroid is normal. No supraclavicular or axillary lymphadenopathy. Ectasia of the entire thoracic aorta is present with aneurysm at the proximal aspect of the descending aorta. At this site, the thoracic aorta measures up to 4.8 cm. Along the posterior aspect of the aorta, there is a probable pseudoaneurysm or thrombosed pseudoaneurysm that accounts for the mass lesion seen on CT. Heart is enlarged with extensive coronary artery calcifications. Upper abdomen: No acute abnormality in the upper abdomen. Musculoskeletal: No worrisome focal osseous lesions. IMPRESSION: 1. 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 The combination of the presumed pseudoaneurysm and aneurysm throughout the thoracic aorta accounts for the apparent mass lesion in the left upper lobe. Nonemergent thoracic or vascular surgery consultation is recommended for management of this aneurysm. Contrast enhanced CTA may be useful for future workup to more fully evaluate the aneurysm. 2. Severe emphysema without mass or nodule to suggest primary lung cancer. 3. Trace bilateral pleural effusions. Dictated on workstation # [id number] Dict: 11/18/20 1520 Trans: 11/18/20 1536 [facility] [id number] Interpreted by: AVERY CABRERA MD Electronically signed by: Departure Impression Primary Impression: Head injury Qualified Codes: S09.90XA - Unspecified injury of head, initial encounter Additional Impression: Thoracic aneurysm without mention of rupture Disposition: 01 HOME, SELF-CARE Condition: Stable Departure-Patient Inst. Decision time for Depature: 16:13 Referrals: DIXIE DIETZ MD (PCP/Family) Primary Care Physician Patient Instructions: Closed Head Injury (DC), Thoracic Aortic Aneurysm Add. Discharge Instructions: All discharge instructions reviewed with patient and/or family. Voiced understanding. Continue home medications as previously prescribed. Follow-up with primary care physician for recheck and further evaluation and to further discuss CT results for nonemergent outpatient evaluation of thoracic aneurysm if indicated. Return for other concerns as needed. Copy Copies To 1: DIXIE DIETZ MD, TIMOTHY D MD Nov 18, 2020 13:55
--- NOTE | 2020-11-18 14:47 | Diagnostic Imaging Report ---
PROCEDURE: CT head and CT cervical spine without contrast. TECHNIQUE: Multiple contiguous axial images were obtained through the brain and cervical spine without the use of intravenous contrast. Sagittal and coronal reformations through the cervical spine were then performed. Auto Exposure Controls were utilized during the CT exam to meet ALARA standards for radiation dose reduction. INDICATION: Trauma, fall with injury to head and cervical spine. COMPARISON: None available. FINDINGS: Head: No intracranial hyperdense hemorrhage or space-occupying mass. No hydrocephalus or midline shift. Global atrophy is present with periventricular white matter hypoattenuation most commonly seen with chronic microvascular ischemic disease. No acute skull fracture. Paranasal sinuses and mastoid air cells are clear. Cervical spine: No acute fracture or traumatic malalignment in the cervical spine. Grade 1 anterolisthesis of C7 on T1 is due to severe facet osteoarthritis. Diffuse degenerative disc disease is present throughout the cervical spine. However, there are no sites of high-grade spinal stenosis. Severe bilateral neuroforaminal narrowing at C7-T1 due to the anterolisthesis. Partially imaged mass in the left lung apex. IMPRESSION: 1. No acute intracranial hemorrhage or skull fracture. 2. No acute fracture or traumatic malalignment in the cervical spine. 3. Partially imaged mass in the left upper lobe of the lung. Recommend CT chest without contrast for further characterization. Dictated by: Dictated on workstation # [id number]
--- NOTE | 2020-11-18 15:36 | Diagnostic Imaging Report ---
EXAMINATION: CT chest wo. TECHNIQUE: Multiple contiguous axial images were obtained through the chest without the use of intravenous contrast. All CT scans use one or more of the following dose optimizing techniques: automated exposure control, MA and/or KvP adjustment based on a patient size and exam type, or iterative reconstruction. INDICATION: Mass seen on CT neck from earlier same day. COMPARISON: Chest radiograph from 06/12/2020. FINDINGS: Lungs and airway: No endoluminal nodule within the trachea. Severe centrilobular emphysema is present. No pulmonary mass or suspicious nodule. Pleura: Trace bilateral pleural effusions. Heart and mediastinum: Thyroid is normal. No supraclavicular or axillary lymphadenopathy. Ectasia of the entire thoracic aorta is present with aneurysm at the proximal aspect of the descending aorta. At this site, the thoracic aorta measures up to 4.9 cm. Along the posterior aspect of the aorta, there is a probable pseudoaneurysm or thrombosed pseudoaneurysm that accounts for the mass lesion seen on CT. Heart is enlarged with extensive coronary artery calcifications. Upper abdomen: No acute abnormality in the upper abdomen. Musculoskeletal: No worrisome focal osseous lesions. IMPRESSION: 1. 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 The combination of the presumed pseudoaneurysm and aneurysm throughout the thoracic aorta accounts for the apparent mass lesion in the left upper lobe. Nonemergent thoracic or vascular surgery consultation is recommended for management of this aneurysm. Contrast enhanced CTA may be useful for future workup to more fully evaluate the aneurysm. 2. Severe emphysema without mass or nodule to suggest primary lung cancer. 3. Trace bilateral pleural effusions. Dictated by: Dictated on workstation # [id number]
[2020-11-18 16:49] VITALS: BP 158/92
== END 2020-11-18 16:54 | disposition home or self-care (01) ==
LOC: EDUNIT# 12:57 → ER FS 12:58
DX: S09.90XA Unspecified injury of head, initial encounter (principal); I71.2 Thoracic aortic aneurysm, without rupture; J44.9 Chronic obstructive pulmonary disease, unspecified; I10 Essential (primary) hypertension; K21.9 Gastro-esophageal reflux disease without esophagitis; Z79.899 Other long term (current) drug therapy; W18.30XA Fall on same level, unspecified, initial encounter
CPT/HCPCS: 70450; 71250; 72125; 93005